=== PATIENT | male | born 1990 | race American Indian/Alaskan Native ===

== ENCOUNTER 2016-12-20 20:18 | Inpatient (IN) | payer OTHER ==
[2016-12-20] MEDS ORDERED: Sodium Chloride 0.9% 1,000 ML IV ONE (21:14)
[2016-12-20 21:37] LABS: BASO # 0.1 K/uL (0.0-0.2); BASO % 0.7 % (0.0-2.0); EOS # 0.1 K/uL (0.0-0.7); EOS % 0.5 % (0.0-4.0); LYMPH # 2.2 K/uL (1.0-4.3); LYMPH % 12.2 % (20.0-40.0); MEAN CORPUSCULAR HEMOGLOBIN 30.4 pg (27.0-31.0); MEAN PLATELET VOLUME 7.5 fL (7.2-11.7); MONO # 0.9 K/uL (0.0-0.8); MONO % 4.8 % (0.0-10.0); RED CELL DISTRIBUTION WIDTH 13.4 % (11.5-14.5)
[2016-12-20] MEDS ORDERED: Sodium Chloride 0.9% 1,000 ML ONE (21:37)
[2016-12-20] MEDS ORDERED: Morphine 4 MG/ML VIAL ONE (21:37)
[2016-12-20 21:41] LABS: MEAN CELL VOLUME 89.4 fL (80.0-94.0); RBC URINE 6 /hpf (0-3); URINE BACTERIA RARE (<OCC); URINE BILIRUBIN NEGATIVE (NEGATIVE); URINE COLOR Yellow (YELLOW); URINE GLUCOSE (UA) NORMAL (Normal); URINE KETONE 1+ mg/dL (NEGATIVE); URINE LEUKOCYTE ESTERASE NEG Leu/uL (Negative); URINE PROTEIN NEGATIVE (NEGATIVE); URINE UROBILINOGEN NORMAL mg/dL (0.2-1.0); WBC URINE 1 /hpf (0-5); WHITE BLOOD COUNT 17.8 K/uL (4.8-10.8)
[2016-12-20 21:42] LABS: URINE BLOOD 1+ (NEGATIVE)
[2016-12-20 21:49] LABS: CHLORIDE 94 mmol/L (98-107); SODIUM 133 mmol/L (132-148)
[2016-12-20 21:51] LABS: BILIRUBIN,TOTAL 2.2 mg/dL (0.2-1.3); GFR AFRICAN-AMERICAN > 60
[2016-12-20 21:52] LABS: ALB/GLOB RATIO 1.2 (1.0-2.1); ALKALINE PHOSPHATASE 65 U/L (38-126); ALT/SGPT 24 U/L (21-72); AST/SGOT 74 U/L (17-59); BLOOD UREA NITROGEN 14 mg/dL (9-20); CALCIUM 9.3 mg/dl (8.6-10.4); CARBON DIOXIDE 22 mmol/L (22-30); GLUCOSE,RANDOM 89 mg/dL (75-110)
[2016-12-20 21:53] LABS: POTASSIUM 5.6 mmol/L (3.6-5.2)
--- NOTE | 2016-12-20 22:50 | C.PDOC ---
History Of Present Illness 26 year old male with a history of pancreatitis, presents to the ED with complaints of epigastric pain radiating to the back with associated nausea and vomiting for 2 days. Patient states he had pancreatitis last month secondary to alcohol consumption and stopped drinking. He notes he did binge drink 2 days ago prior to onset of his current symptoms. Denies fever, diarrhea, GI bleed, dysuria, or any other complaints at this time. Time Seen by Provider: 12/20/16 21:03 Chief Complaint (Nursing): Abdominal Pain History Per: Patient History/Exam Limitations: no limitations Onset/Duration Of Symptoms: Days Current Symptoms Are (Timing): Still Present Severity: Mild Pain Scale Rating Of: 9 Location Of Pain/Discomfort: Epigastric Radiation Of Pain To:: Back Quality Of Discomfort: "Pain" Associated Symptoms: Nausea, Vomiting. denies: Fever, Diarrhea, Urinary Symptoms Exacerbating Factors: None Alleviating Factors: None Past Medical History Reviewed: Historical Data, Nursing Documentation, Vital Signs Vital Signs: Last Vital Signs Temp 99.5 F 12/21/16 00:56 Pulse 97 H 12/21/16 02:09 Resp 16 12/21/16 02:09 BP 143/82 12/21/16 02:09 Pulse Ox 98 12/21/16 05:07 - Medical History PMH: Pancreatitis (ONE MONTH AGO) Family History: States: No Known Family Hx - Social History Hx Alcohol Use: Yes Hx Substance Use: No - Immunization History Hx Tetanus Toxoid Vaccination: No Hx Influenza Vaccination: No Hx Pneumococcal Vaccination: No Review Of Systems Except As Marked, All Systems Reviewed And Found Negative. Constitutional: Negative for: Fever, Chills Gastrointestinal: Positive for: Nausea, Vomiting, Abdominal Pain (+Epigastric pain radiating back). Negative for: Diarrhea, Hematochezia, Hematemesis Genitourinary: Negative for: Dysuria Musculoskeletal: Negative for: Back Pain Physical Exam - Physical Exam Appears: Non-toxic, No Acute Distress Skin: Normal Color, Warm, Dry Head: Atraumatic, Normacephalic Eye(s): bilateral: Normal Inspection Oral Mucosa: Moist Chest: Symmetrical Cardiovascular: Rhythm Regular Respiratory: Normal Breath Sounds, No Accessory Muscle Use, No Rales, No Rhonchi , No Wheezing Gastrointestinal/Abdominal: Bowel Sounds (soft), Soft, Tenderness (+Mild- moderate epigastric tenderness), No Distention, No Guarding, No Rebound Back: No CVA Tenderness Extremity: Normal ROM, No Deformity Neurological/Psych: Oriented x3, Normal Speech, Normal Cognition, Normal Motor Gait: Steady ED Course And Treatment - Laboratory Results Result Diagrams: 12/20/16 21:34 12/20/16 21:34 O2 Sat by Pulse Oximetry: 98 (Room air) Pulse Ox Interpretation: Normal - Radiology CXR: Interpreted by Me, Viewed By Me CXR Interpretation: Yes: No Acute Disease - CT Scan/US CT ABD & Pelvis w/contrast Other Rad Studies (CT/US): Read By Radiologist, Radiology Report Reviewed CT/US Interpretation: FINDINGS: Lower thorax: The visualized portions of the lung bases are normal. ABDOMEN: Liver: There is diffuse mild enlargement of the liver. There is a diffuse decrease in hepatic parenchymal density, consistent with fatty infiltration. Gallbladder and bile ducts: The gallbladder is normal. No calcified stones. No ductal dilation. Pancreas: There is moderate peripancreatic fluid and fat stranding at the level of the pancreatic head and uncinate process. There is heterogeneous attenuation of this portion of the pancreas, although there is no definite pancreatic necrosis at this time. Spleen: Unremarkable. Adrenals: The adrenal glands are normal. Kidneys and ureters: There is felt to be a nonobstructing stone in the lower pole of the right kidney. There is no hydronephrosis on either side. Stomach and bowel: Unremarkable. No obstruction. Appendix: A normal appendix is identified. PELVIS: Bladder: The bladder is normal. Reproductive: Unremarkable as visualized. ABDOMEN and PELVIS: Intraperitoneal space: Unremarkable. No free air. No significant fluid collection. Bones/joints: No acute fracture. No dislocation. Soft tissues: There is a fat-containing umbilical hernia. Vasculature: Unremarkable. No abdominal aortic aneurysm. Lymph nodes: There are a few mildly prominent mesenteric lymph nodes. IMPRESSION: 1. There is moderate peripancreatic fluid and fat stranding at the level of the pancreatic head and uncinate process. There is heterogeneous attenuation of this portion of the pancreas, although there is no definite pancreatic necrosis at this time. This suggests moderate acute focal pancreatitis involving the pancreatic head and uncinate process. Please correlate with clinical and lab data. 2. Additional findings as described above. ED OBSERVATION Date of observation admission: 12/20/16 Time of observation admission: 21:00 - Observation admission statement Patient is being placed in observation because:: Abdominal pain - Goals of Observation Goals of observation are:: rule out acute abdomen and observing for improvement of symptoms. - Progress Note Progress Note: 12/20/16 22:00 Patient reports that the pain medications helped. Abdomen: soft, (+) mild epigastric tenderness. 12/20/16 23:09 Patient reports that the pain has returned and requesting pain medications. 12/21/16 05:10 On third re-exam the patient still has pain and nausea. Lipase is normal but CT exam shows signs of acute pancreatitis, with janett-pancreatic stranding and fluid. Case was discussed with Dr. Monroe reich who agrees to admit the patient to his service. Disposition - Disposition Disposition: HOSPITALIZED Disposition Time: 01:00 Condition: FAIR - Clinical Impression Clinical Impression: Abdominal pain, Acute pancreatitis - PA / SERVICE SECRETARY / Resident Statement MD/DO has reviewed & agrees with the documentation as recorded. - Scribe Statement The provider has reviewed the documentation as recorded by the Scribe Denver Donnelly. All medical record entries made by the Scribe were at my direction and personally dictated by me. I have reviewed the chart and agree that the record accurately reflects my personal performance of the history, physical exam, medical decision making, and the department course for this patient. I have also personally directed, reviewed, and agree with the discharge instructions and disposition.
[2016-12-20] MEDS ORDERED: Sodium Chloride 0.9% 500 ML IV ONE (23:04)
[2016-12-21] MEDS ORDERED: Sodium Chloride 0.9% 1,000 ML ONE (00:07)
[2016-12-21] MEDS ORDERED: Morphine 4 MG/ML VIAL ONE (00:07)
[2016-12-21] MEDS ORDERED: HYDROmorphone 1 mg/ml ISec IVP PRN (01:54)
[2016-12-21] MEDS ORDERED: Dextrose 5%/0.45% NS 1,000 ML IV SCH (02:00)
[2016-12-21] MEDS ORDERED: Dextrose 5%-0.225% NS 1,000 ML IV ONE (02:04)
[2016-12-21] MEDS ORDERED: HYDROmorphone 1 mg/ml ISec ONE (02:04)
[2016-12-21] MEDS ORDERED: HYDROmorphone 1 mg/ml ISec IVP STA ×2 (05:00→08:05)
[2016-12-21 05:30] LABS: AMYLASE 64 U/L (30-110)
--- NOTE | 2016-12-21 07:37 | CP.PCM.PN ---
<Ketan Adams H - Last Filed: 12/21/16 13:40> Subjective - Date & Time of Evaluation Date of Evaluation: 12/21/16 Time of Evaluation: 09:00 - Subjective Subjective: Dr. Amando Gonzalez service, Patient seen and examined in room. Patient reports having 2 days of nausea, vomiting, diffuse abdominal pain, and decreased appetite. He came to the ED was discharged and then returned. He reports a history of etoh abuse but has been sober for the past several months. He also says he has had pancreatitis before due to alcohol abuse. He says he was vomited twice both times were yellow bilious and non bloody. Objective - Vital Signs/Intake and Output Vital Signs (last 24 hours): Temp Pulse Resp BP Pulse Ox 99.5 F 97 H 16 158/82 H 98 12/21/16 00:56 12/21/16 02:09 12/21/16 02:09 12/21/16 05:30 12/21/16 05:12 - Medications Medications: Current Medications Enoxaparin Sodium (Lovenox) [address] [facility] Hydromorphone HCl (Dilaudid) 1 mg IVP Q8H PRN PRN Reason: Pain, severe (8-10) Last Admin: 12/21/16 02:10 Dose: 1 mg Dextrose/Sodium Chloride (Dextrose 5%/0.45% Ns 1000 Ml) 1,000 mls @ 60 mls/hr IV .[id number] Last Admin: 12/21/16 02:10 Dose: 60 mls/hr Influenza Virus Vaccine (Afluria) 45 mcg IM .ONCE ONE Stop: 12/23/16 14:01 Pantoprazole Sodium (Protonix Inj) [address] [facility] Pneumococcal Polyvalent Vaccine (Pneumovax 23 Vaccine) 0.5 ml IM .ONCE ONE Stop: 12/23/16 14:01 - Constitutional Appears: Non-toxic, No Acute Distress - Head Exam Head Exam: ATRAUMATIC, NORMAL INSPECTION, NORMOCEPHALIC - Eye Exam Eye Exam: PERRL. absent: Nystagmus, Scleral icterus Pupil Exam: NORMAL ACCOMODATION - Respiratory Exam Respiratory Exam: Clear to Ausculation Bilateral. absent: Rhonchi, Wheezes - Cardiovascular Exam Cardiovascular Exam: REGULAR RHYTHM, RRR, +S1, +S2. absent: Gallop, Rubs - GI/Abdominal Exam GI & Abdominal Exam: Guarding, Soft, Tenderness, Normal Bowel Sounds. absent: Organomegaly - Extremities Exam Extremities Exam: Normal Inspection. absent: Pedal Edema - Psychiatric Exam Psychiatric exam: Normal Affect, Normal Mood - Skin Skin Exam: Normal Color, Warm Assessment and Plan (1) Acute pancreatitis Assessment & Plan: CT scan of the abdomen/pelvis shows mild pancreatitis. Will keep the patient NPO for now and given IV fluids, follow up his am labs, hepatitis panel, and abdominal US Will try clear liquid diet tomorrow depending on patient's pain level. 4mg IV Morphine Q6H prn for pain. Lactated Ringers 150 cc/hr. Status: Acute (2) Alcohol abuse Status: Chronic (3) Prophylactic measure Assessment & Plan: Protonix 40mg Lovenox 40mg SC Status: Acute <Isaiah Gonzalez S - Last Filed: 12/22/16 19:47> Objective - Vital Signs/Intake and Output Vital Signs (last 24 hours): Temp Pulse Resp BP Pulse Ox 98.5 F 88 20 149/85 97 12/22/16 15:54 12/22/16 15:54 12/22/16 15:54 12/22/16 15:54 12/22/16 15:54 - Medications Medications: Current Medications Enoxaparin Sodium (Lovenox) [address] [facility] Last Admin: 12/22/16 10:01 Dose: 40 mg Lactated Ringer's (Lactated Ringer's) 1,000 mls @ 100 mls/hr IV .Q10H [facility] Last Admin: 12/22/16 14:20 Dose: 100 mls/hr Potassium Chloride (Potassium Chloride 20 Meq/100 Ml) 100 mls @ 50 mls/hr IVPB ONCE ONE Stop: 12/22/16 21:45 Influenza Virus Vaccine (Afluria) 45 mcg IM .ONCE ONE Stop: 12/23/16 14:01 Morphine Sulfate (Morphine) 4 mg IVP Q6H PRN PRN Reason: Pain, severe (8-10) Last Admin: 12/22/16 17:38 Dose: 4 mg Pantoprazole Sodium (Protonix Inj) [address] [facility] Last Admin: 12/22/16 10:02 Dose: 40 mg Pneumococcal Polyvalent Vaccine (Pneumovax 23 Vaccine) 0.5 ml IM .ONCE ONE Stop: 12/23/16 14:01 - Labs Labs: 12/22/16 07:04 12/22/16 07:04 Attending/Attestation - Attestation I have personally seen and examined this patient.: Yes I have fully participated in the care of the patient.: Yes I have reviewed all pertinent clinical information, including history, physical exam and plan: Yes Notes (Text): 12/21/16 19:47 case seen and discussed with staff and resident
[2016-12-21 09:08] LABS: BASO # 0.1 K/uL (0.0-0.2); BASO % 0.6 % (0.0-2.0); EOS # 0.1 K/uL (0.0-0.7); EOS % 0.6 % (0.0-4.0); HEMATOCRIT 41.1 % (35.0-51.0); LYMPH # 2.3 K/uL (1.0-4.3); LYMPH % 12.7 % (20.0-40.0); MEAN CELL VOLUME 90.5 fL (80.0-94.0); MEAN CORPUSCULAR HEMOGLOBIN 30.5 pg (27.0-31.0); MEAN CORPUSCULAR HGB CONC 33.7 g/dL (33.0-37.0); MEAN PLATELET VOLUME 8.4 fL (7.2-11.7); MONO # 0.9 K/uL (0.0-0.8); MONO % 5.1 % (0.0-10.0); RED CELL DISTRIBUTION WIDTH 13.2 % (11.5-14.5); WHITE BLOOD COUNT 18.4 K/uL (4.8-10.8)
[2016-12-21 09:19] LABS: CHLORIDE 98 mmol/L (98-107)
--- NOTE | 2016-12-21 09:19 | RAD ---
PROCEDURE: CHEST RADIOGRAPH, 1 VIEW HISTORY: abd pain COMPARISON: The L eft wrist FINDINGS: LUNGS: Clear. PLEURA: No pneumothorax or pleural fluid seen. CARDIOVASCULAR: Normal. OSSEOUS STRUCTURES: No significant abnormalities. VISUALIZED UPPER ABDOMEN: Normal. OTHER FINDINGS: None. IMPRESSION: No active disease.
[2016-12-21 09:20] LABS: SODIUM 132 mmol/L (132-148)
[2016-12-21 09:22] LABS: ALB/GLOB RATIO 1.3 (1.0-2.1); AST/SGOT 51 U/L (17-59); BILIRUBIN,TOTAL 1.8 mg/dL (0.2-1.3); BLOOD UREA NITROGEN 10 mg/dL (9-20); CARBON DIOXIDE 19 mmol/L (22-30); GFR AFRICAN-AMERICAN > 60; TOTAL PROTEIN 7.7 g/dL (6.3-8.3)
[2016-12-21 09:23] LABS: ALKALINE PHOSPHATASE 55 U/L (38-126); ALT/SGPT 14 U/L (21-72); GLUCOSE,RANDOM 97 mg/dL (75-110); MAGNESIUM 1.7 mg/dL (1.6-2.3); PHOSPHOROUS 3.8 mg/dL (2.5-4.5)
[2016-12-21] MEDS ORDERED: Lactated Ringer's 1,000 ML IV SCH ×2 (09:30→13:46)
--- NOTE | 2016-12-21 10:08 | CT ---
PROCEDURE: CT Abdomen and Pelvis dated 12/20/2016. HISTORY: Epigastric pain, vomiting ;, hx of pancreatitis COMPARISON: High post that may comparison made with prior CT scan 11/11/2016 . TECHNIQUE: Contiguous axial images of the abdomen and pelvis performed in standard fashion without oral or intravenous contrast material. Sagittal and coronal reformats generated. Radiation dose: Total exam DLP = 913.61 mGy-cm. FINDINGS: LOWER THORAX: Lung bases are clear. No infiltrate effusion or basilar pneumothorax. Heart size within range of normal. No significant pericardial effusion. Tiny hiatal hernia. LIVER: Liver is borderline/mildly enlarged measuring approximately 18.5 cm in CC dimension. Mild diffuse fatty hepatic infiltration. No obvious hepatic mass collection or calcification. Portal and splenic veins are opacified. GALLBLADDER AND BILE DUCTS: Gallbladder is physiologically distended. No evidence of intraluminal gallbladder calculi. PANCREAS: There is slight edematous appearance of the pancreatic head and uncinate process with surrounding peripancreatic fluid that extends into the right anterior para renal space. Overall however the inflammatory changes and fluid appears to have diminished slightly Findings are consistent with this patient's history of pancreatitis. SPLEEN: Spleen exhibits normal size and attenuation pattern ADRENALS: . No adrenal lesions. KIDNEYS AND URETERS: Kidneys exhibit symmetric nephrograms. No evidence of nephrolithiasis or hydronephrosis. BLADDER: Urinary bladder is incompletely distended which presumably accounts for thick-walled appearance. Muscular hypertrophy may contribute. Possibility of a cystitis not excluded. REPRODUCTIVE: Prostate gland unremarkable. APPENDIX: Normal-appearing appendix. BOWEL: Evaluation of the bowel is somewhat lack of oral contrast material. PERITONEUM: No free intraperitoneal LYMPH NODES: Unremarkable. No enlarged lymph nodes. VASCULATURE: Unremarkable. No aortic aneurysm. BONES: Osseous structures intact. OTHER FINDINGS: None. IMPRESSION: Findings consistent with mild pancreatitis slightly improved however from prior study. Borderline/mild hepatomegaly with mild fatty hepatic infiltration.
[2016-12-21] MEDS: Enoxaparin 40 mg Syringe SC SCH (10:33)
[2016-12-21 10:41] LABS: ALCOHOL SERUM < 10 mg/dl (0-10)
[2016-12-21] MEDS: Lactated Ringer's 1,000 ML IV SCH ×3 (15:24→22:29)
--- NOTE | 2016-12-21 15:28 | CP.PCM.CON ---
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 Patient notes onset of constant epigastric pain upon awakening Wednesday morning, pain scale 9/10. He notes radiation to bilateral flank and back described "gas stuck in his back". Associated nausea, two episodes of food vomitus, bloating, loss of appetite, and constipation with last bowel movement on wednesday. Denies fever, chills, sweats, hematemesis, hematochezia, melena, diarrhea, or weight loss. Endorses last alcoholic drink to be the day prior to previous admission for pancreatitis in November 2016. No prior EGD or colonoscopy. Family- denies pancreatic cancer, colon cancer Social- 3 cigarettes per day, denies illicit drug use - endorsed sobriety day prior to last admission 11/2016 (previous 1-2 bottles liquor/day)x9 years Surgery- none Review of Systems - Review of Systems Review of Systems: A 12-point review of systems negative except for as above Past Patient History - Past Medical History & Family History Past Medical History?: Yes - Past Social History Smoking Status: Never Smoked - CARDIAC Hx Cardiac Disorders: No - PULMONARY Hx Respiratory Disorders: No - NEUROLOGICAL Hx Neurological Disorder: No - HEENT Hx HEENT Problems: No - RENAL Hx Chronic Kidney Disease: No - ENDOCRINE/METABOLIC Hx Endocrine Disorders: No - HEMATOLOGICAL/ONCOLOGICAL Hx Blood Disorders: No - INTEGUMENTARY Hx Dermatological Problems: No - MUSCULOSKELETAL/RHEUMATOLOGICAL Hx Falls: No - GASTROINTESTINAL Hx Pancreatitis: Yes (ONE MONTH AGO) - GENITOURINARY/GYNECOLOGICAL Hx Genitourinary Disorders: No - PSYCHIATRIC Hx Substance Use: No - SURGICAL HISTORY Hx Surgeries: No - ANESTHESIA Hx Anesthesia: No Hx Anesthesia Reactions: No Hx Malignant Hyperthermia: No Meds Allergies/Adverse Reactions: Allergies Allergy/AdvReac Type Severity Reaction Status Date / Time shellfish derived Allergy Verified 12/20/16 20:36 - Medications Medications: Current Medications Enoxaparin Sodium (Lovenox) 40 mg SC DAILY [facility] Last Admin: 12/21/16 10:33 Dose: 40 mg Influenza Virus Vaccine (Afluria) 45 mcg IM .ONCE ONE Stop: 12/23/16 14:01 Morphine Sulfate (Morphine) 4 mg IVP Q6H PRN PRN Reason: Pain, severe (8-10) Pantoprazole Sodium (Protonix Inj) 40 mg IVP DAILY [facility] Last Admin: 12/21/16 10:34 Dose: 40 mg Pneumococcal Polyvalent Vaccine (Pneumovax 23 Vaccine) 0.5 ml IM .ONCE ONE Stop: 12/23/16 14:01 Physical Exam - Constitutional Appears: Non-toxic, No Acute Distress - Head Exam Head Exam: ATRAUMATIC, NORMOCEPHALIC - Eye Exam Eye Exam: EOMI, PERRL Pupil Exam: PERRL. absent: Miosis, Mydriatic - ENT Exam ENT Exam: Mucous Membranes Moist, Normal Oropharynx - Neck Exam Neck exam: Positive for: Full Rom, Normal Inspection - Respiratory Exam Respiratory Exam: Clear to Auscultation Bilateral. absent: Rales, Rhonchi, Wheezes - Cardiovascular Exam Cardiovascular Exam: RRR, +S1, +S2. absent: Gallop, Rubs - GI/Abdominal Exam GI & Abdominal Exam: Normal Bowel Sounds, Organomegaly, Soft, Tenderness. absent: Distended, Firm, Guarding, Rebound, Rigid Additional comments: hepatomegaly - Extremities Exam Extremities exam: Positive for: full ROM. Negative for: pedal edema - Neurological Exam Neurological exam: Alert - Psychiatric Exam Psychiatric exam: Normal Affect, Normal Mood - Skin Skin Exam: Dry, Intact, Normal Color, Warm Results - Vital Signs Recent Vital Signs: Last Vital Signs Temp 98.9 F 12/21/16 09:29 Pulse 85 12/21/16 09:29 Resp 20 12/21/16 09:29 BP 152/94 H 12/21/16 09:29 Pulse Ox 98 12/21/16 09:29 - Labs Result Diagrams: 12/21/16 09:01 12/21/16 09:01 Labs: Laboratory Results - last 24 hr 12/21/16 12/21/16 05:16 09:01 WBC 18.4 H RBC 4.54 Hgb 13.9 Hct 41.1 MCV 90.5 MCH 30.5 MCHC 33.7 RDW 13.2 Plt Count 277 MPV 8.4 Neut % (Auto) 81.0 H Lymph % (Auto) 12.7 L [place] % (Auto) 5.1 Eos % (Auto) 0.6 Baso % (Auto) 0.6 Neut # 14.9 H Lymph # 2.3 [place] # 0.9 H Eos # 0.1 Baso # 0.1 Differential Comment Sodium 132 Potassium 5.0 Chloride 98 Carbon Dioxide 19 L Anion Gap 20 BUN 10 Creatinine 0.6 L Est GFR ( Amer) > 60 Est GFR (Non-Af Amer) > 60 Random Glucose 97 Calcium 9.0 Phosphorus 3.8 Magnesium 1.7 Total Bilirubin 1.8 H AST 51 ALT 14 L D Alkaline Phosphatase 55 Total Protein 7.7 Albumin 4.3 Globulin 3.4 Albumin/Globulin Ratio 1.3 Amylase 64 Lipase 18 L Urine Opiates Screen Positive Urine Methadone Screen Negative Ur Barbiturates Screen Negative Ur Phencyclidine Scrn Negative Ur Amphetamines Screen Negative U Benzodiazepines Scrn Negative U Oth Cocaine Metabols Negative U Cannabinoids Screen Negative Alcohol, Quantitative < 10 Assessment & Plan - Assessment and Plan (Free Text) Assessment: 26 year old male with 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 CT A/P showing mild peripancreatic head and uncinate process edema, inflammation, and fluid slightly improved from prior CT 11/2016. Laboratory findings showed leukocytosis with elevated BUN from baseline in setting of acute pancreatitis. No prior EGD or colonoscopy. Plan: >continue aggressive IVFs, LR 200cc/hr for first 24 hours >BUN improving >follow up AM labs- WBC, BUN >NPO diet, advance as tolerated >titrate down IVFs as tolerated >elevated TB- pending Hepatitis panel and abdominal U/S >counselled on alcohol cessation >suspicion for alcoholic etiology of pancreatitis >ultrasound 11/2016 without gallstones >further recommendations based on clinical course <Mary MORALES,Patti - Last Filed: 12/21/16 19:52> Meds - Medications Medications: Current Medications Enoxaparin Sodium (Lovenox) 40 mg SC DAILY [facility] Last Admin: 12/21/16 10:33 Dose: 40 mg Lactated Ringer's (Lactated Ringer's) 1,000 mls @ 200 mls/hr IV .Q5H [facility] Last Admin: 12/21/16 15:24 Dose: 200 mls/hr Influenza Virus Vaccine (Afluria) 45 mcg IM .ONCE ONE Stop: 12/23/16 14:01 Morphine Sulfate (Morphine) 4 mg IVP Q6H PRN PRN Reason: Pain, severe (8-10) Pantoprazole Sodium (Protonix Inj) 40 mg IVP DAILY [facility] Last Admin: 12/21/16 10:34 Dose: 40 mg Pneumococcal Polyvalent Vaccine (Pneumovax 23 Vaccine) 0.5 ml IM .ONCE ONE Stop: 12/23/16 14:01 Results - Vital Signs Recent Vital Signs: Last Vital Signs Temp 99.1 F 12/21/16 16:00 Pulse 87 12/21/16 16:00 Resp 20 12/21/16 16:00 BP 155/90 H 12/21/16 16:00 Pulse Ox 98 12/21/16 16:00 - Labs Result Diagrams: 12/21/16 09:01 12/21/16 09:01 Labs: Laboratory Results - last 24 hr 12/21/16 12/21/16 05:16 09:01 WBC 18.4 H RBC 4.54 Hgb 13.9 Hct 41.1 MCV 90.5 MCH 30.5 MCHC 33.7 RDW 13.2 Plt Count 277 MPV 8.4 Neut % (Auto) 81.0 H Lymph % (Auto) 12.7 L [place] % (Auto) 5.1 Eos % (Auto) 0.6 Baso % (Auto) 0.6 Neut # 14.9 H Lymph # 2.3 [place] # 0.9 H Eos # 0.1 Baso # 0.1 Differential Comment Sodium 132 Potassium 5.0 Chloride 98 Carbon Dioxide 19 L Anion Gap 20 BUN 10 Creatinine 0.6 L Est GFR ( Amer) > 60 Est GFR (Non-Af Amer) > 60 Random Glucose 97 Calcium 9.0 Phosphorus 3.8 Magnesium 1.7 Total Bilirubin 1.8 H AST 51 ALT 14 L D Alkaline Phosphatase 55 Total Protein 7.7 Albumin 4.3 Globulin 3.4 Albumin/Globulin Ratio 1.3 Amylase 64 Lipase 18 L Urine Opiates Screen Positive Urine Methadone Screen Negative Ur Barbiturates Screen Negative Ur Phencyclidine Scrn Negative Ur Amphetamines Screen Negative U Benzodiazepines Scrn Negative U Oth Cocaine Metabols Negative U Cannabinoids Screen Negative Alcohol, Quantitative < 10 Attending/Attestation - Attestation I have personally seen and examined this patient.: Yes I have fully participated in the care of the patient.: Yes I have reviewed all pertinent clinical information: Yes Notes (Text): 12/21/16 19:50 Patient seen and examined at bedside with GI fellow this am. This is a 26 year old male with 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 CT A/P showing mild peripancreatic head and uncinate process edema, inflammation, and fluid slightly improved from prior CT 11/2016. Laboratory findings showed leukocytosis with elevated BUN from baseline in setting of acute pancreatitis. Continue aggressive fluid resuscitation and start clear liquid diet. Alcohol cessation. No gallstones on sonogram. Elevated LFT- send hepatitis profile
--- NOTE | 2016-12-21 17:18 | CP.PCM.CON ---
Past Patient History - Past Medical History & Family History Past Medical History?: Yes - Past Social History Smoking Status: Never Smoked - CARDIAC Hx Cardiac Disorders: No - PULMONARY Hx Respiratory Disorders: No - NEUROLOGICAL Hx Neurological Disorder: No - HEENT Hx HEENT Problems: No - RENAL Hx Chronic Kidney Disease: No - ENDOCRINE/METABOLIC Hx Endocrine Disorders: No - HEMATOLOGICAL/ONCOLOGICAL Hx Blood Disorders: No - INTEGUMENTARY Hx Dermatological Problems: No - MUSCULOSKELETAL/RHEUMATOLOGICAL Hx Falls: No - GASTROINTESTINAL Hx Pancreatitis: Yes (ONE MONTH AGO) - GENITOURINARY/GYNECOLOGICAL Hx Genitourinary Disorders: No - PSYCHIATRIC Hx Substance Use: No - SURGICAL HISTORY Hx Surgeries: No - ANESTHESIA Hx Anesthesia: No Hx Anesthesia Reactions: No Hx Malignant Hyperthermia: No Meds Allergies/Adverse Reactions: Allergies Allergy/AdvReac Type Severity Reaction Status Date / Time shellfish derived Allergy Verified 12/20/16 20:36 - Medications Medications: Current Medications Enoxaparin Sodium (Lovenox) 40 mg SC DAILY [facility] Last Admin: 12/21/16 10:33 Dose: 40 mg Lactated Ringer's (Lactated Ringer's) 1,000 mls @ 200 mls/hr IV .Q5H [facility] Last Admin: 12/21/16 15:24 Dose: 200 mls/hr Influenza Virus Vaccine (Afluria) 45 mcg IM .ONCE ONE Stop: 12/23/16 14:01 Morphine Sulfate (Morphine) 4 mg IVP Q6H PRN PRN Reason: Pain, severe (8-10) Pantoprazole Sodium (Protonix Inj) 40 mg IVP DAILY [facility] Last Admin: 12/21/16 10:34 Dose: 40 mg Pneumococcal Polyvalent Vaccine (Pneumovax 23 Vaccine) 0.5 ml IM .ONCE ONE Stop: 12/23/16 14:01 Physical Exam - Constitutional Appears: Well - Head Exam Head Exam: ATRAUMATIC, NORMAL INSPECTION, NORMOCEPHALIC - Eye Exam Eye Exam: EOMI, Normal appearance, PERRL Pupil Exam: NORMAL ACCOMODATION, PERRL - ENT Exam ENT Exam: Mucous Membranes Moist, Normal Exam - Neck Exam Neck exam: Positive for: Normal Inspection - Respiratory Exam Respiratory Exam: Decreased Breath Sounds - Cardiovascular Exam Cardiovascular Exam: REGULAR RHYTHM, +S1, +S2 - GI/Abdominal Exam GI & Abdominal Exam: Diminished Bowel Sounds, Soft - Rectal Exam Rectal Exam: Deferred Results - Vital Signs Recent Vital Signs: Last Vital Signs Temp 98.9 F 12/21/16 09:29 Pulse 85 12/21/16 09:29 Resp 20 12/21/16 09:29 BP 152/94 H 12/21/16 09:29 Pulse Ox 98 12/21/16 09:29 - Labs Result Diagrams: 12/21/16 09:01 12/21/16 09:01 Labs: Laboratory Results - last 24 hr 12/21/16 12/21/16 05:16 09:01 WBC 18.4 H RBC 4.54 Hgb 13.9 Hct 41.1 MCV 90.5 MCH 30.5 MCHC 33.7 RDW 13.2 Plt Count 277 MPV 8.4 Neut % (Auto) 81.0 H Lymph % (Auto) 12.7 L Barbour % (Auto) 5.1 Eos % (Auto) 0.6 Baso % (Auto) 0.6 Neut # 14.9 H Lymph # 2.3 Barbour # 0.9 H Eos # 0.1 Baso # 0.1 Differential Comment Sodium 132 Potassium 5.0 Chloride 98 Carbon Dioxide 19 L Anion Gap 20 BUN 10 Creatinine 0.6 L Est GFR ( Amer) > 60 Est GFR (Non-Af Amer) > 60 Random Glucose 97 Calcium 9.0 Phosphorus 3.8 Magnesium 1.7 Total Bilirubin 1.8 H AST 51 ALT 14 L D Alkaline Phosphatase 55 Total Protein 7.7 Albumin 4.3 Globulin 3.4 Albumin/Globulin Ratio 1.3 Amylase 64 Lipase 18 L Urine Opiates Screen Positive Urine Methadone Screen Negative Ur Barbiturates Screen Negative Ur Phencyclidine Scrn Negative Ur Amphetamines Screen Negative U Benzodiazepines Scrn Negative U Oth Cocaine Metabols Negative U Cannabinoids Screen Negative Alcohol, Quantitative < 10
[2016-12-21] MEDS: Morphine 4 MG/ML VIAL IVP PRN (20:10)
[2016-12-22] MEDS: Morphine 4 MG/ML VIAL IVP PRN ×3 (03:15→17:38)
[2016-12-22 07:16] LABS: BASO # 0.1 K/uL (0.0-0.2); BASO % 0.4 % (0.0-2.0); EOS # 0.3 K/uL (0.0-0.7); EOS % 2.3 % (0.0-4.0); HEMATOCRIT 36.6 % (35.0-51.0); LYMPH % 16.9 % (20.0-40.0); MEAN CELL VOLUME 90.7 fL (80.0-94.0); MEAN CORPUSCULAR HEMOGLOBIN 30.3 pg (27.0-31.0); MEAN CORPUSCULAR HGB CONC 33.5 g/dL (33.0-37.0); MEAN PLATELET VOLUME 8.1 fL (7.2-11.7); MONO # 0.6 K/uL (0.0-0.8); WHITE BLOOD COUNT 12.1 K/uL (4.8-10.8)
[2016-12-22 07:57] LABS: CHLORIDE 96 mmol/L (98-107)
[2016-12-22 07:58] LABS: POTASSIUM 3.4 mmol/L (3.6-5.2); SODIUM 135 mmol/L (132-148)
[2016-12-22 08:00] LABS: ALB/GLOB RATIO 1.3 (1.0-2.1); ALKALINE PHOSPHATASE 51 U/L (38-126); AST/SGOT 24 U/L (17-59); BILIRUBIN,TOTAL 0.9 mg/dL (0.2-1.3); BLOOD UREA NITROGEN 4 mg/dL (9-20); CARBON DIOXIDE 25 mmol/L (22-30); GFR AFRICAN-AMERICAN > 60; GLUCOSE,RANDOM 75 mg/dL (75-110); TOTAL PROTEIN 6.6 g/dL (6.3-8.3)
[2016-12-22 08:01] LABS: ALT/SGPT 19 U/L (21-72); CALCIUM 8.8 mg/dl (8.6-10.4); MAGNESIUM 1.7 mg/dL (1.6-2.3)
--- NOTE | 2016-12-22 09:16 | CP.PCM.PN ---
<AidanAngelica - Last Filed: 12/22/16 09:26> Subjective - Date & Time of Evaluation Date of Evaluation: 12/22/16 Time of Evaluation: 09:15 - Subjective Subjective: Gastroenterology Fellow/PGY4 Progress Note Patient notes unchanged abdominal pain, pain scale 8/10. Tolerated clear liquid diet. Two normal bowel movements overnight. A 12-point review of systems negative except for as above. Objective - Vital Signs/Intake and Output Vital Signs (last 24 hours): Temp Pulse Resp BP Pulse Ox 98.5 F 83 20 151/89 H 99 12/21/16 23:50 12/21/16 23:50 12/21/16 23:50 12/21/16 23:50 12/21/16 23:50 Intake and Output: 12/22/16 12/22/16 06:59 18:59 Intake Total 1400 Balance 1400 - Medications Medications: Current Medications Enoxaparin Sodium (Lovenox) 40 mg SC DAILY [facility] Last Admin: 12/21/16 10:33 Dose: 40 mg Lactated Ringer's (Lactated Ringer's) 1,000 mls @ 200 mls/hr IV .Q5H [facility] Last Admin: 12/21/16 22:29 Dose: 200 mls/hr Influenza Virus Vaccine (Afluria) 45 mcg IM .ONCE ONE Stop: 12/23/16 14:01 Morphine Sulfate (Morphine) 4 mg IVP Q6H PRN PRN Reason: Pain, severe (8-10) Last Admin: 12/22/16 03:15 Dose: 4 mg Pantoprazole Sodium (Protonix Inj) 40 mg IVP DAILY [facility] Last Admin: 12/21/16 10:34 Dose: 40 mg Pneumococcal Polyvalent Vaccine (Pneumovax 23 Vaccine) 0.5 ml IM .ONCE ONE Stop: 12/23/16 14:01 - Labs Labs: 12/22/16 07:04 12/22/16 07:04 - Constitutional Appears: Non-toxic, No Acute Distress - Head Exam Head Exam: ATRAUMATIC, NORMOCEPHALIC - Eye Exam Eye Exam: EOMI, PERRL Pupil Exam: PERRL. absent: Miosis, Mydriatic - ENT Exam ENT Exam: Mucous Membranes Moist, Normal Oropharynx - Neck Exam Neck Exam: Full ROM, Normal Inspection - Respiratory Exam Respiratory Exam: Clear to Ausculation Bilateral. absent: Rales, Rhonchi, Wheezes - Cardiovascular Exam Cardiovascular Exam: RRR, +S1, +S2. absent: Gallop, Rubs - GI/Abdominal Exam GI & Abdominal Exam: Soft, Tenderness, Normal Bowel Sounds. absent: Distended, Firm, Guarding, Rigid, Organomegaly, Rebound Additional comments: epigastric/LUQ tenderness - Extremities Exam Extremities Exam: Full ROM. 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 CT A/P showing mild peripancreatic head and uncinate process edema, inflammation, and fluid slightly improved from prior CT 11/2016. Laboratory findings showed leukocytosis with elevated BUN from baseline in setting of acute pancreatitis. No prior EGD or colonoscopy. Plan: >suspicion for alcoholic etiology of pancreatitis >continue aggressive IVFs >on clear liquids, advance as tolerated >titrate IVFs and diet tolerated >laboratory findings improved-WBC, BUN >subjective pain unchanged >NPO through yesterday evening for Ultrasound >Hepatitis panel negative >pending abdominal U/S >further recommendations based on clinical course <Kurt Lincoln - Last Filed: 12/22/16 09:45> Objective - Vital Signs/Intake and Output Vital Signs (last 24 hours): Temp Pulse Resp BP Pulse Ox 98.5 F 83 20 151/89 H 99 12/21/16 23:50 12/21/16 23:50 12/21/16 23:50 12/21/16 23:50 12/21/16 23:50 Intake and Output: 12/22/16 12/22/16 06:59 18:59 Intake Total 1400 Balance 1400 - Medications Medications: Current Medications Enoxaparin Sodium (Lovenox) 40 mg SC DAILY [facility] Last Admin: 12/21/16 10:33 Dose: 40 mg Lactated Ringer's (Lactated Ringer's) 1,000 mls @ 200 mls/hr IV .Q5H [facility] Last Admin: 12/21/16 22:29 Dose: 200 mls/hr Influenza Virus Vaccine (Afluria) 45 mcg IM .ONCE ONE Stop: 12/23/16 14:01 Morphine Sulfate (Morphine) 4 mg IVP Q6H PRN PRN Reason: Pain, severe (8-10) Last Admin: 12/22/16 03:15 Dose: 4 mg Pantoprazole Sodium (Protonix Inj) 40 mg IVP DAILY [facility] Last Admin: 12/21/16 10:34 Dose: 40 mg Pneumococcal Polyvalent Vaccine (Pneumovax 23 Vaccine) 0.5 ml IM .ONCE ONE Stop: 12/23/16 14:01 - Labs Labs: 12/22/16 07:04 12/22/16 07:04 Attending/Attestation - Attestation I have personally seen and examined this patient.: Yes I have fully participated in the care of the patient.: Yes I have reviewed all pertinent clinical information, including history, physical exam and plan: Yes Notes (Text): 12/22/16 09:41 I have seen and examined patient with GI fellow. He is resting in bed comfortably, though continues to endorse epigastric abdominal pain radiating to back, 8/10 intensity. He denies nausea, vomiting, fever/chills. History of ETOH related pancreatitis Abdominal pain - Continue with IVF hydration, PPI therapy - Pain control - Follow up abdominal US results - Clear liquid diet, advance slowly as tolerated - ETOH cessation counseling - Will continue to monitor patient clinical course
[2016-12-22] MEDS: Enoxaparin 40 mg Syringe SC SCH (10:01)
[2016-12-22] MEDS ORDERED: Potassium Chloride 20 mEq/15 ml LIQ UD PO STA (10:38)
--- NOTE | 2016-12-22 11:27 | CP.PCM.PN ---
<Alyssa Church H - Last Filed: 12/22/16 11:24> Subjective - Date & Time of Evaluation Date of Evaluation: 12/22/16 Time of Evaluation: 06:45 - Subjective Subjective: Dr. Amando Gonzalez service: Patient seen and examined in room. Patient reports abdominal pain that is improving but now radiating to his back. Patient has been drinking clear liquids without increased pain. Patient denies fever, chills, chest pain, SOB, nausea, vomiting, diarrhea, constipation. Patient excited to eat real food. May start soft diet for dinner. Objective - Vital Signs/Intake and Output Vital Signs (last 24 hours): Temp Pulse Resp BP Pulse Ox 97.2 F L 91 H 20 135/80 99 12/22/16 08:00 12/22/16 08:00 12/22/16 08:00 12/22/16 08:00 12/22/16 08:00 Intake and Output: 12/22/16 12/22/16 06:59 18:59 Intake Total 1400 Balance 1400 - Medications Medications: Current Medications Enoxaparin Sodium (Lovenox) 40 mg SC DAILY [facility] Last Admin: 12/22/16 10:01 Dose: 40 mg Lactated Ringer's (Lactated Ringer's) 1,000 mls @ 200 mls/hr IV .Q5H [facility] Last Admin: 12/21/16 22:29 Dose: 200 mls/hr Influenza Virus Vaccine (Afluria) 45 mcg IM .ONCE ONE Stop: 12/23/16 14:01 Morphine Sulfate (Morphine) 4 mg IVP Q6H PRN PRN Reason: Pain, severe (8-10) Last Admin: 12/22/16 10:02 Dose: 4 mg Pantoprazole Sodium (Protonix Inj) 40 mg IVP DAILY [facility] Last Admin: 12/22/16 10:02 Dose: 40 mg Pneumococcal Polyvalent Vaccine (Pneumovax 23 Vaccine) 0.5 ml IM .ONCE ONE Stop: 12/23/16 14:01 - Labs Labs: 12/22/16 07:04 12/22/16 07:04 - Constitutional Appears: Non-toxic, No Acute Distress - Head Exam Head Exam: NORMAL INSPECTION - Eye Exam Eye Exam: EOMI - ENT Exam ENT Exam: Mucous Membranes Moist - Respiratory Exam Respiratory Exam: Clear to Ausculation Bilateral, NORMAL BREATHING PATTERN. absent: Rales, Rhonchi, Wheezes - Cardiovascular Exam Cardiovascular Exam: REGULAR RHYTHM, +S1, +S2. absent: Gallop, Rubs, Murmur - GI/Abdominal Exam GI & Abdominal Exam: Soft, Normal Bowel Sounds. absent: Firm, Guarding, Tenderness - Extremities Exam Extremities Exam: Normal Capillary Refill. absent: Pedal Edema - Neurological Exam Neurological Exam: Alert, Oriented x3 - Psychiatric Exam Psychiatric exam: Normal Affect, Normal Mood - Skin Skin Exam: Normal Color, Warm Assessment and Plan - Assessment and Plan (Free Text) Assessment: (1) Acute pancreatitis Assessment & Plan: CT scan of the abdomen/pelvis shows mild pancreatitis. Clear liquid diet Hepatitis panel negative F/U Abdominal US 4mg IV Morphine Q6H prn for pain. Lactated Ringers 150 cc/hr. Status: Acute (2) Alcohol abuse Status: Chronic Quit a few months ago No risk of withdrawal (3) Prophylactic measure Assessment & Plan: Protonix 40mg Lovenox 40mg SC Status: Acute <Isaiah Gonzalez S - Last Filed: 12/22/16 19:47> Objective - Vital Signs/Intake and Output Vital Signs (last 24 hours): Temp Pulse Resp BP Pulse Ox 98.5 F 88 20 149/85 97 12/22/16 15:54 12/22/16 15:54 12/22/16 15:54 12/22/16 15:54 12/22/16 15:54 - Medications Medications: Current Medications Enoxaparin Sodium (Lovenox) 40 mg SC DAILY [facility] Last Admin: 12/22/16 10:01 Dose: 40 mg Lactated Ringer's (Lactated Ringer's) 1,000 mls @ 100 mls/hr IV .Q10H [facility] Last Admin: 12/22/16 14:20 Dose: 100 mls/hr Potassium Chloride (Potassium Chloride 20 Meq/100 Ml) 100 mls @ 50 mls/hr IVPB ONCE ONE Stop: 12/22/16 21:45 Influenza Virus Vaccine (Afluria) 45 mcg IM .ONCE ONE Stop: 12/23/16 14:01 Morphine Sulfate (Morphine) 4 mg IVP Q6H PRN PRN Reason: Pain, severe (8-10) Last Admin: 12/22/16 17:38 Dose: 4 mg Pantoprazole Sodium (Protonix Inj) 40 mg IVP DAILY [facility] Last Admin: 12/22/16 10:02 Dose: 40 mg Pneumococcal Polyvalent Vaccine (Pneumovax 23 Vaccine) 0.5 ml IM .ONCE ONE Stop: 12/23/16 14:01 - Labs Labs: 12/22/16 07:04 12/22/16 07:04 Attending/Attestation - Attestation I have personally seen and examined this patient.: Yes I have fully participated in the care of the patient.: Yes I have reviewed all pertinent clinical information, including history, physical exam and plan: Yes Notes (Text): 12/22/16 19:47 case seen and discussed with staff and resident
--- NOTE | 2016-12-22 12:01 | US ---
Abdominal ultrasound dated 12/21/2016. History: Abdominal pain. Sonographic evaluation of abdomen performed and compared with prior study 11/11/2016. Comparison also made with CT scan abdomen pelvis dated 12/21/19 17. Findings: The liver exhibits normal size measuring 15.4 cm CC dimension. Liver demonstrates smooth contour increased echotexture consistent with fatty infiltration however other infiltrative hepatocellular disease process not excluded. . No obvious hepatic mass or collection. Trace amount of free fluid adjacent to the right kidney. Gallbladder is physiologically distended. No evidence intraluminal gallbladder calculi or sonographic Llamas sign. Common bile duct measures 3 mm. Evaluation of pancreas is somewhat limited. Pancreatic mid body and tail appear grossly unremarkable. There may be some infiltration changes at of the pancreatic head and uncinate process region. . Please refer to CT scan of the abdomen and pelvis for further details regarding acute pancreatitis. Spleen is unremarkable. Small splenule is present. Kidneys exhibit symmetric size. No evidence of nephrolithiasis or hydronephrosis. Small amount of para renal fluid related to the aforementioned pancreatitis Impression: Evaluation of the pancreas limited on this study however maybe some infiltration changes in the pancreatic head and uncinate process region. Please refer to prior CT scan of the abdomen pelvis regarding changes of pancreatitis which are seen to much better advantage. . Small amount of fluid also noted in the rightpara renal space. Fatty infiltration.
[2016-12-22] MEDS: Lactated Ringer's 1,000 ML IV SCH (14:20)
[2016-12-22] MEDS ORDERED: Lactated Ringer's 1,000 ML IV SCH (15:07)
--- NOTE | 2016-12-22 16:41 | CP.PCM.PN ---
Subjective - Date & Time of Evaluation Date of Evaluation: 12/22/16 Time of Evaluation: 10:40 - Subjective Subjective: clinically same Objective - Vital Signs/Intake and Output Vital Signs (last 24 hours): Temp Pulse Resp BP Pulse Ox 98.5 F 88 20 149/85 97 12/22/16 15:54 12/22/16 15:54 12/22/16 15:54 12/22/16 15:54 12/22/16 15:54 Intake and Output: 12/22/16 12/22/16 06:59 18:59 Intake Total 1400 Balance 1400 - Medications Medications: Current Medications Enoxaparin Sodium (Lovenox) 40 mg SC DAILY [facility] Last Admin: 12/22/16 10:01 Dose: 40 mg Lactated Ringer's (Lactated Ringer's) 1,000 mls @ 100 mls/hr IV .Q10H [facility] Last Admin: 12/22/16 14:20 Dose: 100 mls/hr Influenza Virus Vaccine (Afluria) 45 mcg IM .ONCE ONE Stop: 12/23/16 14:01 Morphine Sulfate (Morphine) 4 mg IVP Q6H PRN PRN Reason: Pain, severe (8-10) Last Admin: 12/22/16 10:02 Dose: 4 mg Pantoprazole Sodium (Protonix Inj) 40 mg IVP DAILY [facility] Last Admin: 12/22/16 10:02 Dose: 40 mg Pneumococcal Polyvalent Vaccine (Pneumovax 23 Vaccine) 0.5 ml IM .ONCE ONE Stop: 12/23/16 14:01 - Labs Labs: 12/22/16 07:04 12/22/16 07:04 - Constitutional Appears: Well - Head Exam Head Exam: ATRAUMATIC, NORMAL INSPECTION, NORMOCEPHALIC - Eye Exam Eye Exam: EOMI, Normal appearance, PERRL Pupil Exam: NORMAL ACCOMODATION, PERRL - ENT Exam ENT Exam: Mucous Membranes Moist, Normal Exam - Respiratory Exam Respiratory Exam: Decreased Breath Sounds - Cardiovascular Exam Cardiovascular Exam: REGULAR RHYTHM, +S1, +S2 - GI/Abdominal Exam GI & Abdominal Exam: Soft, Diminished Bowel Sounds - Rectal Exam Rectal Exam: Deferred Assessment and Plan - Assessment and Plan (Free Text) Plan: kcl npo-clear liquids giconsult check maylase and lipse maribel as ordered
[2016-12-22] MEDS ORDERED: Potassium Chloride 20 mEq 100 ML IVPB ONE (19:46)
[2016-12-23] MEDS: Morphine 4 MG/ML VIAL IVP PRN ×2 (01:30→09:27)
[2016-12-23 08:13] LABS: BASO # 0.1 K/uL (0.0-0.2); BASO % 0.6 % (0.0-2.0); EOS # 0.4 K/uL (0.0-0.7); EOS % 4.4 % (0.0-4.0); HEMATOCRIT 35.8 % (35.0-51.0); LYMPH # 2.8 K/uL (1.0-4.3); MEAN CELL VOLUME 90.6 fL (80.0-94.0); MEAN CORPUSCULAR HEMOGLOBIN 30.7 pg (27.0-31.0); MEAN CORPUSCULAR HGB CONC 33.9 g/dL (33.0-37.0); MEAN PLATELET VOLUME 8.2 fL (7.2-11.7); MONO # 0.5 K/uL (0.0-0.8); MONO % 5.3 % (0.0-10.0); RED CELL DISTRIBUTION WIDTH 12.9 % (11.5-14.5); WHITE BLOOD COUNT 10.2 K/uL (4.8-10.8)
[2016-12-23 08:21] LABS: CHLORIDE 100 mmol/L (98-107); POTASSIUM 3.6 mmol/L (3.6-5.2); SODIUM 136 mmol/L (132-148)
[2016-12-23 08:23] LABS: ALB/GLOB RATIO 1.1 (1.0-2.1); AST/SGOT 16 U/L (17-59); BILIRUBIN,TOTAL 0.7 mg/dL (0.2-1.3); BLOOD UREA NITROGEN 3 mg/dL (9-20); CARBON DIOXIDE 26 mmol/L (22-30); GFR AFRICAN-AMERICAN > 60; TOTAL PROTEIN 6.9 g/dL (6.3-8.3)
[2016-12-23 08:24] LABS: ALKALINE PHOSPHATASE 46 U/L (38-126); ALT/SGPT 26 U/L (21-72); CALCIUM 9.2 mg/dl (8.6-10.4); GLUCOSE,RANDOM 84 mg/dL (75-110)
[2016-12-23 08:31] VITALS: RESP 20
[2016-12-23] MEDS: Enoxaparin 40 mg Syringe SC SCH (09:28)
--- NOTE | 2016-12-23 10:42 | CP.PCM.PN ---
<Angelica Bermudez - Last Filed: 12/23/16 10:48> Subjective - Date & Time of Evaluation Date of Evaluation: 12/23/16 Time of Evaluation: 10:37 - Subjective Subjective: Gastroenterology Fellow/PGY4 Progress Note Patient notes improving abdominal pain, pain scale 4/10. Tolerated clear liquid diet. One normal bowel movements overnight. A 12-point review of systems negative except for as above. Objective - Vital Signs/Intake and Output Vital Signs (last 24 hours): Temp Pulse Resp BP Pulse Ox 97.8 F 87 20 148/95 H 98 12/23/16 08:30 12/23/16 08:30 12/23/16 08:30 12/23/16 08:30 12/23/16 08:30 - Medications Medications: Current Medications Enoxaparin Sodium (Lovenox) 40 mg SC DAILY [facility] Last Admin: 12/23/16 09:28 Dose: 40 mg Influenza Virus Vaccine (Afluria) 45 mcg IM .ONCE ONE Stop: 12/23/16 14:01 Morphine Sulfate (Morphine) 4 mg IVP Q6H PRN PRN Reason: Pain, severe (8-10) Last Admin: 12/23/16 09:27 Dose: 4 mg Pantoprazole Sodium (Protonix Inj) 40 mg IVP DAILY [facility] Last Admin: 12/23/16 09:28 Dose: 40 mg Pneumococcal Polyvalent Vaccine (Pneumovax 23 Vaccine) 0.5 ml IM .ONCE ONE Stop: 12/23/16 14:01 - Labs Labs: 12/23/16 08:09 12/23/16 08:09 - Constitutional Appears: Non-toxic, No Acute Distress - Head Exam Head Exam: ATRAUMATIC, NORMOCEPHALIC - Eye Exam Eye Exam: EOMI, PERRL Pupil Exam: PERRL. absent: Miosis, Mydriatic - ENT Exam ENT Exam: Mucous Membranes Moist, Normal Oropharynx - Neck Exam Neck Exam: Full ROM, Normal Inspection - Respiratory Exam Respiratory Exam: Clear to Ausculation Bilateral. absent: Rales, Rhonchi, Wheezes - Cardiovascular Exam Cardiovascular Exam: RRR, +S1, +S2. absent: Gallop, Rubs - GI/Abdominal Exam GI & Abdominal Exam: Soft, Tenderness, Normal Bowel Sounds. absent: Distended, Firm, Guarding, Rigid, Organomegaly, Rebound Additional comments: epigastric tenderness to palpation - Extremities Exam Extremities Exam: Full ROM. 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 CT A/P showing mild peripancreatic head and uncinate process edema, inflammation, and fluid slightly improved from prior CT 11/2016. Laboratory findings show improved leukocytosis with elevated BUN from baseline. No prior EGD or colonoscopy. Plan: >advance diet as tolerated >titrate IVFs as diet tolerated >Hepatitis panel negative >abdominal U/S without cholelithiasis >counselled on alcohol cessation >thank you for opportunity to participate in the care of this patient <Kiesha Moore - Last Filed: 12/23/16 14:11> Objective - Vital Signs/Intake and Output Vital Signs (last 24 hours): Temp Pulse Resp BP Pulse Ox 98.6 F 86 20 154/93 H 100 12/23/16 13:53 12/23/16 13:53 12/23/16 13:53 12/23/16 13:53 12/23/16 13:53 - Labs Labs: 12/23/16 08:09 12/23/16 08:09 Attending/Attestation - Attestation I have personally seen and examined this patient.: Yes I have fully participated in the care of the patient.: Yes I have reviewed all pertinent clinical information, including history, physical exam and plan: Yes Notes (Text): Patient seen and examined with GI fellow. Agree with her note as documented above with the following additions/exceptions. This is a 26 year old male with h/o ETOH pancreatitis who is admitted with abdominal pain and radiographic pancreatitis. His abdominal sonogram was negative. LFTs improved. His pain is much better this morning and he is tolerating liquid diet. Would advance diet as tolerated/low fat diet. Antiemetic as needed. Advised ETOH cessation. Please call with any questions/concerns. 12/23/16 14:10
--- NOTE | 2016-12-23 11:37 | CP.PCM.PN ---
Subjective - Date & Time of Evaluation Date of Evaluation: 12/23/16 Time of Evaluation: 07:40 - Subjective Subjective: Dr. Amando Gonzalez service: Patient seen and examined in room. Patient tolerated full liquid diet well. Patient had mild side discomfort with heart healthy diet. Patient denies fever, chills, chest pain, SOB, nausea, vomiting, diarrhea, constipation. Objective - Vital Signs/Intake and Output Vital Signs (last 24 hours): Temp Pulse Resp BP Pulse Ox 97.8 F 87 20 148/95 H 98 12/23/16 08:30 12/23/16 08:30 12/23/16 08:30 12/23/16 08:30 12/23/16 08:30 - Medications Medications: Current Medications Enoxaparin Sodium (Lovenox) 40 mg SC DAILY [facility] Last Admin: 12/23/16 09:28 Dose: 40 mg Influenza Virus Vaccine (Afluria) 45 mcg IM .ONCE ONE Stop: 12/23/16 14:01 Morphine Sulfate (Morphine) 4 mg IVP Q6H PRN PRN Reason: Pain, severe (8-10) Last Admin: 12/23/16 09:27 Dose: 4 mg Pantoprazole Sodium (Protonix Inj) 40 mg IVP DAILY [facility] Last Admin: 12/23/16 09:28 Dose: 40 mg Pneumococcal Polyvalent Vaccine (Pneumovax 23 Vaccine) 0.5 ml IM .ONCE ONE Stop: 12/23/16 14:01 - Labs Labs: 12/23/16 08:09 12/23/16 08:09 - Constitutional Appears: Non-toxic, No Acute Distress - Head Exam Head Exam: NORMAL INSPECTION - Eye Exam Eye Exam: EOMI - ENT Exam ENT Exam: Mucous Membranes Moist - Respiratory Exam Respiratory Exam: Clear to Ausculation Bilateral, NORMAL BREATHING PATTERN. absent: Rales, Rhonchi, Wheezes - Cardiovascular Exam Cardiovascular Exam: REGULAR RHYTHM, +S1, +S2. absent: Gallop, Rubs, Murmur - GI/Abdominal Exam GI & Abdominal Exam: Soft, Normal Bowel Sounds. absent: Firm, Guarding, Tenderness - Extremities Exam Extremities Exam: Normal Capillary Refill. absent: Pedal Edema - Neurological Exam Neurological Exam: Alert, Oriented x3 - Psychiatric Exam Psychiatric exam: Normal Affect, Normal Mood - Skin Skin Exam: Normal Color, Warm Assessment and Plan - Assessment and Plan (Free Text) Assessment: (1) Acute pancreatitis Assessment & Plan: CT scan of the abdomen/pelvis shows mild pancreatitis. Clear liquid diet Hepatitis panel negative Abdominal US negative for cholelithiasis 4mg IV Morphine Q6H prn for pain. Stopped Lactated Ringers 150 cc/hr. Eating heart healthy diet If no pain with lunch, D/C in afternoon Status: Acute (2) Alcohol abuse Status: Chronic Quit a few months ago No risk of withdrawal (3) Prophylactic measure Assessment & Plan: Protonix 40mg Lovenox 40mg SC Status: Acute
[2016-12-23 13:54] VITALS: BP 154/93; PULSE 86; TEMP 98.6; O2SAT 100
[2016-12-23] MEDS ORDERED: Influenza Virus Vaccine 45 mcg/0.5 ml Syr IM ONE (14:00)
[2016-12-23] MEDS ORDERED: Pneumococcal 23-Valent Vaccine IM ONE (14:00)
== END 2016-12-23 13:54 | disposition home or self-care (01) | DRG 440 ==
LOC: C.ER 20:18 → C.9OBSV 21:00 → OBSVTOIN 12-21 01:57 → C.9E 12-21 02:14 → C.5T 12-21 02:33
PROVIDERS: ADMIT Internal Medicine Nephrology; ATTEND Internal Medicine Nephrology
DX: K85.20 Alcohol induced acute pancreatitis without necrosis or infection (principal); F10.21 Alcohol dependence, in remission; K86.0 Alcohol-induced chronic pancreatitis; K59.00 Constipation, unspecified; F17.210 Nicotine dependence, cigarettes, uncomplicated; Z91.013 Allergy to seafood

== ENCOUNTER 2018-01-01 13:17 | Inpatient (IN) | payer OTHER ==
[2018-01-01 13:30] VITALS: BMI 32.3
[2018-01-01] MEDS ORDERED: Sodium Chloride 0.9% 1,000 ML IV ONE (13:40)
[2018-01-01] MEDS ORDERED: Sodium Chloride 0.9% 1,000 ML ONE (13:56)
[2018-01-01 14:03] LABS: SQUAMOUS EPITHIAL < 1 /hpf (0-5); URINE BILIRUBIN NEGATIVE (NEGATIVE); URINE BLOOD NEGATIVE (NEGATIVE); URINE CLARITY Clear (Clear); URINE COLOR Yellow (YELLOW); URINE GLUCOSE (UA) NORMAL (Normal); URINE LEUKOCYTE ESTERASE NEG Leu/uL (Negative); URINE PROTEIN NEGATIVE (NEGATIVE); URINE UROBILINOGEN NORMAL mg/dL (0.2-1.0)
[2018-01-01 14:11] LABS: BASO # 0.1 K/uL (0.0-0.2); BASO % 0.5 % (0.0-2.0); EOS # 0.1 K/uL (0.0-0.7); EOS % 0.4 % (0.0-4.0); HEMOGLOBIN 13.9 g/dL (12.0-18.0); LYMPH # 1.6 K/uL (1.0-4.3); LYMPH % 9.3 % (20.0-40.0); MEAN CELL VOLUME 90.3 fL (80.0-94.0); MEAN CORPUSCULAR HEMOGLOBIN 31.5 pg (27.0-31.0); MEAN CORPUSCULAR HGB CONC 34.9 g/dL (33.0-37.0); MEAN PLATELET VOLUME 8.2 fL (7.2-11.7); MONO # 0.8 K/uL (0.0-0.8); MONO % 4.6 % (0.0-10.0); NEUT % 85.2 % (50.0-75.0); PLATELET COUNT 303 K/uL (130-400); RBC 4.42 Mil/uL (4.40-5.90); RED CELL DISTRIBUTION WIDTH 13.1 % (11.5-14.5)
[2018-01-01 14:13] LABS: WHITE BLOOD COUNT 17.6 K/uL (4.8-10.8)
[2018-01-01 14:25] LABS: ALB/GLOB RATIO 1.3 (1.0-2.1); ALBUMIN 4.7 g/dL (3.5-5.0); ALT/SGPT 18 U/L (21-72); AST/SGOT 26 U/L (17-59); BLOOD UREA NITROGEN 13 mg/dL (9-20); CALCIUM 9.5 mg/dl (8.6-10.4); GFR AFRICAN-AMERICAN > 60; GFR NON-AFRICAN AMERICAN > 60; LIPASE 576 U/L (23-300)
--- NOTE | 2018-01-01 14:44 | C.PDOC ---
History Of Present Illness Patient is a 27 y/o male, with a Hx of pancreatitis, who presents to the ED with a complaint of abdominal pain for the last 2 days. Patient reports pain started yesterday associated with nausea and vomiting; denies diarrhea, fever, chills, chest pain, or history of abdominal surgery. Admits pain is similar to previous pancreatitis flare ups. Patient reports last alcoholic drink was 1 week ago. No other physical complaints at this time. Time Seen by Provider: 01/01/18 13:27 Chief Complaint (Nursing): Abdominal Pain History Per: Patient History/Exam Limitations: no limitations Onset/Duration Of Symptoms: Days (yesterday) Current Symptoms Are (Timing): Still Present Associated Symptoms: Nausea, Vomiting. denies: Fever, Chills, Diarrhea Past Medical History Reviewed: Historical Data, Nursing Documentation, Vital Signs Vital Signs: Last Vital Signs Temp 98.8 F 01/01/18 15:04 Pulse 77 01/01/18 15:04 Resp 18 01/01/18 15:04 BP 125/82 01/01/18 15:04 Pulse Ox 100 01/01/18 15:04 - Medical History PMH: Asthma, Depression, Pancreatitis Denies: Chronic Kidney Disease Surgical History: No Surg Hx Family History: States: No Known Family Hx - Social History Hx Tobacco Use: No Hx Alcohol Use: Yes Hx Substance Use: No - Immunization History Hx Tetanus Toxoid Vaccination: No Hx Influenza Vaccination: Yes Hx Pneumococcal Vaccination: No Review Of Systems Constitutional: Negative for: Fever, Chills Cardiovascular: Negative for: Chest Pain Gastrointestinal: Positive for: Nausea, Vomiting, Abdominal Pain. Negative for : Diarrhea Physical Exam - Physical Exam Appears: Well, Non-toxic, No Acute Distress Skin: Normal Color, Warm, Dry Head: Atraumatic, Normacephalic Oral Mucosa: Moist Chest: Symmetrical Cardiovascular: Rhythm Regular Respiratory: Normal Breath Sounds, No Rales, No Rhonchi, No Wheezing Gastrointestinal/Abdominal: Bowel Sounds (positive), Tenderness (LUQ and epigastric), No Guarding, No Rebound Neurological/Psych: Oriented x3, Normal Speech, Normal Cognition ED Course And Treatment - Laboratory Results Result Diagrams: 01/01/18 14:08 01/01/18 14:08 O2 Sat by Pulse Oximetry: 100 Progress Note: Blood work ordered. Pepcid, toradol, zofran, and IV fluids administered. Medical Decision Making Medical Decision Making: On assessment, patient has abdominal pain. Dr. Amando Gonzalez accepts admission of patient. Disposition Discussed With : Isaiah Gonzalez Doctor Will See Patient In The: Hospital Counseled Patient/Family Regarding: Studies Performed, Diagnosis - Disposition Disposition: HOSPITALIZED Disposition Time: 15:01 Condition: FAIR - Clinical Impression Clinical Impression: Acute pancreatitis - Scribe Statement The provider has reviewed the documentation as recorded by the Scribe Aurelia Wright All medical record entries made by the Scribe were at my direction and personally dictated by me. I have reviewed the chart and agree that the record accurately reflects my personal performance of the history, physical exam, medical decision making, and the department course for this patient. I have also personally directed, reviewed, and agree with the discharge instructions and disposition.
[2018-01-01 14:53] LABS: ANISOCYTOSIS SLIGHT; LYMPHOCYTE 6 % (20-40); MONOCYTE 3 % (0-10); NEUTROPHIL 91 % (50-75); PLATELET ESTIMATE NORMAL (NORMAL); TOTAL CELLS COUNTED 100
[2018-01-01] MEDS ORDERED: HYDROmorphone 1 mg/ml ISec IVP PRN (17:14)
[2018-01-01] MEDS ORDERED: Sodium Chloride 0.9% 1,000 ML IV SCH (19:00)
[2018-01-01 22:18] VITALS: RESP 20
--- NOTE | 2018-01-01 23:18 | CP.PCM.HP ---
Past Patient History - Past Medical History & Family History Past Medical History?: Yes - Past Social History Smoking Status: Never Smoked - CARDIAC Hx Cardiac Disorders: No - PULMONARY Hx Asthma: Yes - NEUROLOGICAL Hx Neurological Disorder: No - HEENT Hx HEENT Problems: No - RENAL Hx Chronic Kidney Disease: No - ENDOCRINE/METABOLIC Hx Endocrine Disorders: No - HEMATOLOGICAL/ONCOLOGICAL Hx Blood Disorders: No - INTEGUMENTARY Hx Dermatological Problems: No - MUSCULOSKELETAL/RHEUMATOLOGICAL Hx Musculoskeletal Disorders: No Hx Falls: No - GASTROINTESTINAL Hx Gastrointestinal Disorders: Yes Hx Pancreatitis: Yes - GENITOURINARY/GYNECOLOGICAL Hx Genitourinary Disorders: No - PSYCHIATRIC Hx Psychophysiologic Disorder: No Hx Substance Use: No - SURGICAL HISTORY Hx Surgeries: No - ANESTHESIA Hx Anesthesia: No Hx Anesthesia Reactions: No Hx Malignant Hyperthermia: No Has any member of the family had a problem w/ anesthesia?: No Meds Allergies/Adverse Reactions: Allergies Allergy/AdvReac Type Severity Reaction Status Date / Time shellfish derived Allergy Verified 01/01/18 13:29 Results - Vital Signs Recent Vital Signs: Last Vital Signs Temp 99.4 F 01/01/18 22:00 Pulse 72 01/01/18 22:00 Resp 20 01/01/18 22:00 BP 139/77 01/01/18 22:00 Pulse Ox 100 01/01/18 22:00 - Labs Result Diagrams: 01/01/18 14:08 01/01/18 14:08 Labs: Laboratory Results - last 24 hr 01/01/18 01/01/18 01/01/18 13:51 14:08 14:08 WBC 17.6 H D RBC 4.42 Hgb 13.9 Hct 39.9 MCV 90.3 MCH 31.5 H MCHC 34.9 RDW 13.1 Plt Count 303 MPV 8.2 Neut % (Auto) 85.2 H Lymph % (Auto) 9.3 L [place] % (Auto) 4.6 Eos % (Auto) 0.4 Baso % (Auto) 0.5 Neut # (Auto) 15.0 H Lymph # (Auto) 1.6 [place] # (Auto) 0.8 Eos # (Auto) 0.1 Baso # (Auto) 0.1 Neutrophils % (Manual) 91 H Lymphocytes % (Manual) 6 L Monocytes % (Manual) 3 Platelet Estimate Normal Anisocytosis (manual) Slight Sodium 140 Potassium 4.2 Chloride 99 Carbon Dioxide 25 Anion Gap 20 BUN 13 Creatinine 0.8 Est GFR ( Amer) > 60 Est GFR (Non-Af Amer) > 60 Random Glucose 113 H Calcium 9.5 Total Bilirubin 0.7 AST 26 ALT 18 L D Alkaline Phosphatase 78 Total Protein 8.3 Albumin 4.7 Globulin 3.7 Albumin/Globulin Ratio 1.3 Lipase 576 H Urine Color Yellow Urine Clarity Clear Urine pH 6.0 Ur Specific [place] 1.019 Urine Protein Negative Urine Glucose (UA) Normal Urine Ketones Negative Urine Blood Negative Urine Nitrate Negative Urine Bilirubin Negative Urine Urobilinogen Normal Ur Leukocyte Esterase Neg Urine WBC (Auto) 1 Urine RBC (Auto) 1 Ur Squamous Epith Cells < 1
[2018-01-02] MEDS ORDERED: Iohexol 240 (50 ml) PO ONE (07:45)
[2018-01-02] MEDS: Sodium Chloride 0.9% 1,000 ML IV SCH ×3 (08:00→17:30)
[2018-01-02] MEDS ORDERED: Iohexol 300 100 ML IJ ONE (08:15)
[2018-01-02] MEDS: Enoxaparin 40 mg Syringe SC SCH (09:39)
--- NOTE | 2018-01-02 11:16 | CP.PCM.CON ---
<Lissa Gonzalez - Last Filed: 01/02/18 11:50> History of Present Illness - History of Present Illness History of Present Illness: PGY4 Initial GI Consultation Connor Degroot is a 26 year old male with history of Alcoholic Pancreatitis who presented with abdominal pain. Patient notes onset of constant epigastric pain upon awakening, He notes that his pain was sudden and his pain is 9/10. He notes radiation to back. Associated nausea, two episodes of food vomitus, bloating, loss of appetite. Denies fever, chills, sweats, hematemesis, hematochezia, melena, diarrhea, or weight loss. Endorses last alcoholic drink to be weeks to previous admission for pancreatitis. He has had similiar admissions in 11/2016 and 12/2106. No prior EGD or colonoscopy. His abd pain has resolved in the AM and pt was hungry. Family- denies pancreatic cancer, colon cancer Social- 3 cigarettes per day, denies illicit drug use - endorsed sobriety day prior to last admission 11/2016 (previous 1-2 bottles liquor/day)x9 years Surgery- none ROS: 12 point ROS conducted, neg other than above Past Patient History - Past Medical History & Family History Past Medical History?: Yes - Past Social History Smoking Status: Never Smoked - CARDIAC Hx Cardiac Disorders: No - PULMONARY Hx Asthma: Yes - NEUROLOGICAL Hx Neurological Disorder: No - HEENT Hx HEENT Problems: No - RENAL Hx Chronic Kidney Disease: No - ENDOCRINE/METABOLIC Hx Endocrine Disorders: No - HEMATOLOGICAL/ONCOLOGICAL Hx Blood Disorders: No - INTEGUMENTARY Hx Dermatological Problems: No - MUSCULOSKELETAL/RHEUMATOLOGICAL Hx Musculoskeletal Disorders: No Hx Falls: No - GASTROINTESTINAL Hx Gastrointestinal Disorders: Yes Hx Pancreatitis: Yes - GENITOURINARY/GYNECOLOGICAL Hx Genitourinary Disorders: No - PSYCHIATRIC Hx Psychophysiologic Disorder: No Hx Substance Use: No - SURGICAL HISTORY Hx Surgeries: No - ANESTHESIA Hx Anesthesia: No Hx Anesthesia Reactions: No Hx Malignant Hyperthermia: No Has any member of the family had a problem w/ anesthesia?: No Meds Allergies/Adverse Reactions: Allergies Allergy/AdvReac Type Severity Reaction Status Date / Time shellfish derived Allergy Verified 01/01/18 13:29 - Medications Medications: Current Medications Enoxaparin Sodium (Lovenox) 40 mg SC DAILY [facility] Last Admin: 01/02/18 09:39 Dose: 40 mg Hydromorphone HCl (Dilaudid) 1 mg IVP Q8H PRN PRN Reason: Pain Last Admin: 01/02/18 09:34 Dose: 1 mg Sodium Chloride (Sodium Chloride 0.9%) 1,000 mls @ 200 mls/hr IV .Q5H [facility] Last Admin: 01/02/18 08:00 Dose: 200 mls/hr Pantoprazole Sodium (Protonix Inj) 40 mg IVP DAILY [facility] Last Admin: 01/02/18 09:35 Dose: 40 mg Physical Exam - Constitutional Appears: No Acute Distress - Head Exam Head Exam: ATRAUMATIC, NORMOCEPHALIC - Eye Exam Eye Exam: Normal appearance - ENT Exam ENT Exam: Mucous Membranes Moist, Normal Exam - Neck Exam Neck exam: Positive for: Normal Inspection - Respiratory Exam Respiratory Exam: Clear to Auscultation Bilateral. absent: Rales, Rhonchi, Wheezes, Respiratory Distress - Cardiovascular Exam Cardiovascular Exam: REGULAR RHYTHM, +S1, +S2 - GI/Abdominal Exam GI & Abdominal Exam: Normal Bowel Sounds, Soft. absent: Guarding, Hernia, Rebound, Rigid - Extremities Exam Extremities exam: Negative for: joint swelling - Neurological Exam Neurological exam: Alert, Oriented x3 - Psychiatric Exam Psychiatric exam: Normal Affect, Normal Mood - Skin Skin Exam: Dry, Intact, Normal Color, Warm Results - Vital Signs Recent Vital Signs: Last Vital Signs Temp 98.4 F 01/02/18 08:31 Pulse 71 01/02/18 08:31 Resp 20 01/02/18 08:31 BP 148/82 01/02/18 08:31 Pulse Ox 100 01/02/18 08:31 - Labs Result Diagrams: 01/01/18 14:08 01/01/18 14:08 Labs: Laboratory Results - last 24 hr 01/01/18 01/01/18 01/01/18 13:51 14:08 14:08 WBC 17.6 H D RBC 4.42 Hgb 13.9 Hct 39.9 MCV 90.3 MCH 31.5 H MCHC 34.9 RDW 13.1 Plt Count 303 MPV 8.2 Neut % (Auto) 85.2 H Lymph % (Auto) 9.3 L [place] % (Auto) 4.6 Eos % (Auto) 0.4 Baso % (Auto) 0.5 Neut # (Auto) 15.0 H Lymph # (Auto) 1.6 [place] # (Auto) 0.8 Eos # (Auto) 0.1 Baso # (Auto) 0.1 Neutrophils % (Manual) 91 H Lymphocytes % (Manual) 6 L Monocytes % (Manual) 3 Platelet Estimate Normal Anisocytosis (manual) Slight Sodium 140 Potassium 4.2 Chloride 99 Carbon Dioxide 25 Anion Gap 20 BUN 13 Creatinine 0.8 Est GFR ( Amer) > 60 Est GFR (Non-Af Amer) > 60 Random Glucose 113 H Calcium 9.5 Total Bilirubin 0.7 AST 26 ALT 18 L D Alkaline Phosphatase 78 Total Protein 8.3 Albumin 4.7 Globulin 3.7 Albumin/Globulin Ratio 1.3 Lipase 576 H Urine Color Yellow Urine Clarity Clear Urine pH 6.0 Ur Specific [place] 1.019 Urine Protein Negative Urine Glucose (UA) Normal Urine Ketones Negative Urine Blood Negative Urine Nitrate Negative Urine Bilirubin Negative Urine Urobilinogen Normal Ur Leukocyte Esterase Neg Urine WBC (Auto) 1 Urine RBC (Auto) 1 Ur Squamous Epith Cells < 1 Assessment & Plan - Assessment and Plan (Free Text) Assessment: Connor Degroot is a 26 year old male with history of Alcoholic Pancreatitis presenting with abdominal pain. Abd pain, currently only meets 1 out 3 criteria for acute pancreatitis hx of alcoholic pancreatitis elevated lipase Plan: >continue aggressive IVFs, NS 200cc/hr for first 24 hours >titrate down IVFs as he tolerated >counselled on alcohol cessation >suspicion for alcoholic etiology of pancreatitis >will get abd/pel CT to confirm pancreatitis >will get TG levels >further recommendations based on clinical course >pain management as per primary D/W Dr. Uribe <Jairo Uribe - Last Filed: 01/02/18 16:20> Meds - Medications Medications: Current Medications Enoxaparin Sodium (Lovenox) 40 mg SC DAILY [facility] Last Admin: 01/02/18 09:39 Dose: 40 mg Hydromorphone HCl (Dilaudid) 1 mg IVP Q6H PRN PRN Reason: Pain, severe (8-10) Last Admin: 01/02/18 15:28 Dose: 1 mg Sodium Chloride (Sodium Chloride 0.9%) 1,000 mls @ 200 mls/hr IV .Q5H [facility] Last Admin: 01/02/18 13:25 Dose: 200 mls/hr Pantoprazole Sodium (Protonix Inj) 40 mg IVP DAILY [facility] Last Admin: 01/02/18 09:35 Dose: 40 mg Results - Vital Signs Recent Vital Signs: Last Vital Signs Temp 98.4 F 01/02/18 08:31 Pulse 71 01/02/18 08:31 Resp 20 01/02/18 08:31 BP 148/82 01/02/18 08:31 Pulse Ox 100 01/02/18 08:31 - Labs Result Diagrams: 01/01/18 14:08 01/01/18 14:08 Labs: Laboratory Results - last 24 hr 01/02/18 10:40 Triglycerides 253 H Attending/Attestation - Attestation I have personally seen and examined this patient.: Yes I have fully participated in the care of the patient.: Yes I have reviewed all pertinent clinical information: Yes Notes (Text): 01/02/18 16:19 27 year old male with h/o etoh abuse in the past who presents with abdominal pain. Questionable h/o pancreatitis. Lipase has only been mildly elevated. Await CT scan. Recommend IV hydration and pain control and bowel rest in the interim
[2018-01-02] MEDS: HYDROmorphone 1 mg/ml ISec IVP PRN ×2 (15:28→21:19)
--- NOTE | 2018-01-02 17:16 | CP.PCM.PN ---
Subjective - Date & Time of Evaluation Date of Evaluation: 01/02/18 Time of Evaluation: 08:20 - Subjective Subjective: clinically same Objective - Vital Signs/Intake and Output Vital Signs (last 24 hours): Temp Pulse Resp BP Pulse Ox 98.1 F 86 20 134/86 100 01/02/18 15:15 01/02/18 15:15 01/02/18 15:15 01/02/18 15:15 01/02/18 15:15 Intake and Output: 01/02/18 01/02/18 06:59 18:59 Intake Total 900 2320 Output Total 4 Balance 900 2316 - Medications Medications: Current Medications Enoxaparin Sodium (Lovenox) 40 mg SC DAILY [facility] Last Admin: 01/02/18 09:39 Dose: 40 mg Hydromorphone HCl (Dilaudid) 1 mg IVP Q6H PRN PRN Reason: Pain, severe (8-10) Last Admin: 01/02/18 15:28 Dose: 1 mg Sodium Chloride (Sodium Chloride 0.9%) 1,000 mls @ 200 mls/hr IV .Q5H [facility] Last Admin: 01/02/18 13:25 Dose: 200 mls/hr Pantoprazole Sodium (Protonix Inj) 40 mg IVP DAILY [facility] Last Admin: 01/02/18 09:35 Dose: 40 mg - Labs Labs: 01/01/18 14:08 01/01/18 14:08 - Constitutional Appears: Well - Head Exam Head Exam: ATRAUMATIC, NORMAL INSPECTION, NORMOCEPHALIC - Eye Exam Eye Exam: EOMI, Normal appearance, PERRL Pupil Exam: NORMAL ACCOMODATION, PERRL - ENT Exam ENT Exam: Mucous Membranes Moist, Normal Exam - Neck Exam Neck Exam: Full ROM, Normal Inspection. absent: Lymphadenopathy - Respiratory Exam Respiratory Exam: Decreased Breath Sounds - Cardiovascular Exam Cardiovascular Exam: REGULAR RHYTHM, +S1, +S2 - GI/Abdominal Exam GI & Abdominal Exam: Soft, Diminished Bowel Sounds - Rectal Exam Rectal Exam: Deferred
--- NOTE | 2018-01-02 18:01 | CT ---
PROCEDURE: CT scan abdomen and pelvis 01/02/2018 HISTORY: Abdominal pain; rule out pancreatitis. COMPARISON: Comparison made with prior CT scan abdomen pelvis 12/20/2016 the TECHNIQUE: Contiguous axial images of the abdomen and pelvis. Oral contrast was administered. No IV contrast given. Coronal and Sagittal reformats generated. Radiation dose: Total exam DLP = This CT exam was performed using one or more of the following dose reduction techniques: Automated exposure control, adjustment of the mA and/or kV according to patient size, and/or use of iterative reconstruction technique. FINDINGS: LOWER THORAX: Lung bases are clear. No infiltrate effusion or basilar pneumothorax. Tiny hiatal hernia. Heart size within range of normal. No significant pericardial effusion. LIVER: Liver exhibits normal size. Minimal fatty hepatic infiltration. GALLBLADDER AND BILE DUCTS: Gallbladder is physiologically distended. No evidence of intraluminal gallbladder calculi. PANCREAS: There mild edematous changes of the pancreatic head and body with infiltration and fluid in the peripancreatic mesenteric consistent with this patient's history of acute pancreatitis. . Note that the amount of peripancreatic fluid has diminished when compared with the prior study. SPLEEN: Spleen exhibits normal size. Small splenules adjacent to chi the inferomedial margin of the main body of the spleen unchanged. ADRENALS: No adrenal lesions. KIDNEYS AND URETERS: Kidneys demonstrate symmetric nephrograms. No change 5.4 mm nonobstructing calculus lower pole right kidney. The the BLADDER: Urinary bladder is incompletely distended which in part accounts for thick-walled appearance muscular hypertrophy may contribute. Rule out cystitis. REPRODUCTIVE: Unremarkable. APPENDIX: Normal appearing appendix best seen on axial image number [id number]. BOWEL: Evaluation of the bowel is somewhat limited due to incomplete opacification. Stomach is partially distended with oral contrast material some liquid and air. Visualized loops of small bowel exhibit normal contour and caliber. No evidence of acute mechanical small bowel obstruction. Small amount of oral contrast material has extended into the cecum. Moderate amount of stool is present throughout the large bowel consistent with fecal retention/ constipation. Scattered colonic diverticula however no radiographic evidence of acute diverticulitis. PERITONEUM: No gross free intraperitoneal air. Small fat containing umbilical hernia. LYMPH NODES: Few small retroperitoneal lymph nodes are present. VASCULATURE: Unremarkable. No aortic aneurysm. BONES: Minimal superior endplate deformity T11 segment. OTHER FINDINGS: None. IMPRESSION: Findings consistent with acute pancreatitis as described. Minimal fatty hepatic infiltration. Scattered colonic diverticula without radiographic evidence of acute diverticulitis. The bladder wall thickening in part due to incomplete distention and muscular hypertrophy. Cystitis not excluded.
[2018-01-03] MEDS ORDERED: Morphine 4 MG/ML VIAL IV ONE (03:17)
[2018-01-03] MEDS: Sodium Chloride 0.9% 1,000 ML IV SCH ×6 (04:04→19:50)
--- NOTE | 2018-01-03 06:12 | CP.PCM.PN ---
Subjective - Date & Time of Evaluation Date of Evaluation: 01/03/18 Time of Evaluation: 06:04 - Subjective Subjective: PGY-[address] Gonzalez's service: Pt seen and examined at bedside. Nursing reports no acute events overnight. Patient reports abdominal pain, 4-5/10 in severity, located in epigastric/LUQ that radiates to the back. Patient denies fever/chills, N/V overnight. Patient states he is "hungry" this AM and would like trial of solid food. Objective - Vital Signs/Intake and Output Vital Signs (last 24 hours): Temp Pulse Resp BP Pulse Ox 99.3 F 71 20 153/98 H 100 01/03/18 00:00 01/03/18 00:00 01/03/18 00:00 01/03/18 00:00 01/03/18 00:00 Intake and Output: 01/02/18 01/03/18 18:59 06:59 Intake Total 2320 1850 Output Total 4 Balance 2316 1850 - Medications Medications: Current Medications Enoxaparin Sodium (Lovenox) 40 mg SC DAILY [facility] Last Admin: 01/02/18 09:39 Dose: 40 mg Hydromorphone HCl (Dilaudid) 1 mg IVP Q6H PRN PRN Reason: Pain, severe (8-10) Last Admin: 01/02/18 21:19 Dose: 1 mg Sodium Chloride (Sodium Chloride 0.9%) 1,000 mls @ 200 mls/hr IV .Q5H [facility] Last Admin: 01/03/18 04:04 Dose: 200 mls/hr Pantoprazole Sodium (Protonix Inj) 40 mg IVP DAILY [facility] Last Admin: 01/02/18 09:35 Dose: 40 mg - Labs Labs: 01/01/18 14:08 01/01/18 14:08 - Constitutional Appears: Non-toxic, No Acute Distress - Head Exam Head Exam: ATRAUMATIC, NORMAL INSPECTION - Eye Exam Eye Exam: EOMI. absent: Scleral icterus Pupil Exam: PERRL - ENT Exam ENT Exam: Mucous Membranes Moist - Neck Exam Neck Exam: Full ROM - Respiratory Exam Respiratory Exam: Clear to Ausculation Bilateral, NORMAL BREATHING PATTERN - Cardiovascular Exam Cardiovascular Exam: REGULAR RHYTHM, +S1, +S2 - GI/Abdominal Exam GI & Abdominal Exam: Soft, Tenderness (LUQ/epigastric), Normal Bowel Sounds - Extremities Exam Extremities Exam: Normal Inspection. absent: Pedal Edema, Tenderness - Back Exam Back Exam: absent: CVA tenderness (L), CVA tenderness (R) - Neurological Exam Neurological Exam: Alert, Awake, Oriented x3 - Psychiatric Exam Psychiatric exam: Normal Affect, Normal Mood - Skin Skin Exam: Dry, Normal Color, Warm Assessment and Plan - Assessment and Plan (Free Text) Plan: Acute Pancreatitis Admit to med/surg CT A/P (01/02/18): C/w acute pancreatitis. Minimal fatty hepatic infiltration. Scattered colonic diverticula w/o evidence of acute diverticulitis. Lipase 576 Etiology: Possible alcohol Dr. Lincoln, GI golf tournament consultant, help appreciated - Encouraged cessation of NSAID, EtOH - may benefit from outpatient EUS Dilaudid 1mg IV Q6H PRN NS @ 200cc/hr Will trial soft food for lunch Diverticulosis CT A/P (01/02/18): C/w acute pancreatitis. Minimal fatty hepatic infiltration. Scattered colonic diverticula w/o evidence of acute diverticulitis. Pt counseled on high fiber diet, hydration importance Elevated Triglycerides TG 253 Start Lovaza 1 gm PO BID Leukocytosis Resolved WBC 17.6 on admssion, w/ left shift Etiology: Pancreatitis Monitor Prophylaxis Lovenox 40mg SC Daily Protonix 40mg IV Daily [facility] Mirza Mariscal PGY-[address] Gonzalez
[2018-01-03 07:24] LABS: BASO # 0.1 K/uL (0.0-0.2); BASO % 0.7 % (0.0-2.0); EOS # 0.3 K/uL (0.0-0.7); EOS % 3.3 % (0.0-4.0); HEMOGLOBIN 11.5 g/dL (12.0-18.0); LYMPH # 3.3 K/uL (1.0-4.3); LYMPH % 31.2 % (20.0-40.0); MEAN CELL VOLUME 90.4 fL (80.0-94.0); MEAN CORPUSCULAR HEMOGLOBIN 31.2 pg (27.0-31.0); MEAN CORPUSCULAR HGB CONC 34.5 g/dL (33.0-37.0); MONO # 0.6 K/uL (0.0-0.8); MONO % 5.6 % (0.0-10.0); NEUT # 6.2 K/uL (1.8-7.0); NEUT % 59.2 % (50.0-75.0); RBC 3.68 Mil/uL (4.40-5.90); WHITE BLOOD COUNT 10.5 K/uL (4.8-10.8)
[2018-01-03 08:07] LABS: ALB/GLOB RATIO 1.2 (1.0-2.1); ALBUMIN 3.5 g/dL (3.5-5.0); ALT/SGPT 14 U/L (21-72); AST/SGOT 16 U/L (17-59); BLOOD UREA NITROGEN 5 mg/dL (9-20); CALCIUM 8.7 mg/dl (8.6-10.4); GFR AFRICAN-AMERICAN > 60; GFR NON-AFRICAN AMERICAN > 60
--- NOTE | 2018-01-03 08:16 | CP.PCM.PN ---
<Savlatore Vega - Last Filed: 01/03/18 09:51> Subjective - Date & Time of Evaluation Date of Evaluation: 01/03/18 Time of Evaluation: 07:10 - Subjective Subjective: PGY5 GI Fellow Progress Note Patient seen and examined bedside this morning. The patient states that he continues to have epigastric abdominal pain, now radiating towards his back. Denies nausea, vomiting. Asking for more substantial food. Admits to daily use of Advil PM (2 tabs nightly). 12 system ROS performed and negative except where stated. Objective - Vital Signs/Intake and Output Vital Signs (last 24 hours): Temp Pulse Resp BP Pulse Ox 98.2 F 73 20 133/79 99 01/03/18 07:40 01/03/18 07:40 01/03/18 07:40 01/03/18 07:40 01/03/18 07:40 Intake and Output: 01/03/18 01/03/18 06:59 18:59 Intake Total 3690 Output Total 1000 Balance 2690 - Medications Medications: Current Medications Enoxaparin Sodium (Lovenox) 40 mg SC DAILY [facility] Last Admin: 01/02/18 09:39 Dose: 40 mg Hydromorphone HCl (Dilaudid) 1 mg IVP Q6H PRN PRN Reason: Pain, severe (8-10) Last Admin: 01/02/18 21:19 Dose: 1 mg Sodium Chloride (Sodium Chloride 0.9%) 1,000 mls @ 200 mls/hr IV .Q5H [facility] Last Admin: 01/03/18 04:04 Dose: 200 mls/hr Pantoprazole Sodium (Protonix Inj) 40 mg IVP DAILY [facility] Last Admin: 01/02/18 09:35 Dose: 40 mg - Labs Labs: 01/03/18 07:15 01/03/18 07:15 - Constitutional Appears: Non-toxic, No Acute Distress - Eye Exam Eye Exam: EOMI, PERRL - ENT Exam ENT Exam: Mucous Membranes Moist - Respiratory Exam Respiratory Exam: Clear to Ausculation Bilateral. absent: Rales, Rhonchi, Wheezes - GI/Abdominal Exam GI & Abdominal Exam: Soft, Tenderness (epigastric), Normal Bowel Sounds. absent : Distended, Firm, Guarding, Rigid, Organomegaly - Extremities Exam Extremities Exam: Normal Inspection. absent: Pedal Edema - Neurological Exam Neurological Exam: Alert, Awake, Oriented x3 - Psychiatric Exam Psychiatric exam: Normal Affect, Normal Mood - Skin Skin Exam: Dry, Warm Assessment and Plan - Assessment and Plan (Free Text) Assessment: Patient is a 27yo male with PMHx significant for EtOH pancreatitis who presented to the ED with abdominal pain. -Acute pancreatitis -H/O heavy NSAID use Plan: -CT A/P reviewed -Unclear etiology of acute pancreatitis - recent EtOH use but none leading up to admission per patient -Would advance diet per patient request -Continue with IVF as ordered, discontinue when tolerating adequate PO -Analgesia per primary service -TGs elevated but not to degree that might cause pancreatitis -May benefit from outpatient EUS -EtOH and smoking cessation -Encourage cessation of Advil PM use <Patti Hernandez - Last Filed: 01/03/18 16:06> Objective - Vital Signs/Intake and Output Vital Signs (last 24 hours): Temp Pulse Resp BP Pulse Ox 98.5 F 83 20 139/83 98 01/03/18 15:00 01/03/18 15:00 01/03/18 15:00 01/03/18 15:00 01/03/18 15:00 Intake and Output: 01/03/18 01/03/18 06:59 18:59 Intake Total 3690 1600 Output Total 1000 Balance 2690 1600 - Medications Medications: Current Medications Enoxaparin Sodium (Lovenox) 40 mg SC DAILY [facility] Last Admin: 01/03/18 09:16 Dose: 40 mg Hydromorphone HCl (Dilaudid) 1 mg IVP Q6H PRN PRN Reason: Pain, severe (8-10) Last Admin: 01/03/18 10:15 Dose: 1 mg Sodium Chloride (Sodium Chloride 0.9%) 1,000 mls @ 200 mls/hr IV .Q5H [facility] Last Admin: 01/03/18 14:19 Dose: 200 mls/hr Pantoprazole Sodium (Protonix Inj) 40 mg IVP DAILY [facility] Last Admin: 01/03/18 09:17 Dose: 40 mg - Labs Labs: 01/03/18 07:15 01/03/18 07:15 Attending/Attestation - Attestation I have personally seen and examined this patient.: Yes I have fully participated in the care of the patient.: Yes I have reviewed all pertinent clinical information, including history, physical exam and plan: Yes Notes (Text): 01/03/18 16:02 This is a 27 year old male with PMHx significant for EtOH pancreatitis who presented to the ED with abdominal pain with acute uncomplicated pancreatitis. States stopped drinking alcohol few months ago. Asking for pain medications. No choledocholithiasis. Diet low fat as tolerated. Elevated TG. Smoking cessation. Encourage EtOH and smoking cessation
[2018-01-03] MEDS: Enoxaparin 40 mg Syringe SC SCH (09:16)
--- NOTE | 2018-01-03 12:48 | CP.PCM.PN ---
Subjective - Date & Time of Evaluation Date of Evaluation: 01/03/18 Time of Evaluation: 08:20 - Subjective Subjective: clinically same Objective - Vital Signs/Intake and Output Vital Signs (last 24 hours): Temp Pulse Resp BP Pulse Ox 98.2 F 73 20 133/79 99 01/03/18 07:40 01/03/18 07:40 01/03/18 07:40 01/03/18 07:40 01/03/18 07:40 Intake and Output: 01/03/18 01/03/18 06:59 18:59 Intake Total 3690 Output Total 1000 Balance 2690 - Medications Medications: Current Medications Enoxaparin Sodium (Lovenox) 40 mg SC DAILY [facility] Last Admin: 01/03/18 09:16 Dose: 40 mg Hydromorphone HCl (Dilaudid) 1 mg IVP Q6H PRN PRN Reason: Pain, severe (8-10) Last Admin: 01/03/18 10:15 Dose: 1 mg Sodium Chloride (Sodium Chloride 0.9%) 1,000 mls @ 200 mls/hr IV .Q5H [facility] Last Admin: 01/03/18 09:10 Dose: 200 mls/hr Pantoprazole Sodium (Protonix Inj) 40 mg IVP DAILY [facility] Last Admin: 01/03/18 09:17 Dose: 40 mg - Labs Labs: 01/03/18 07:15 01/03/18 07:15 - Constitutional Appears: Well - Head Exam Head Exam: ATRAUMATIC, NORMAL INSPECTION, NORMOCEPHALIC - Eye Exam Eye Exam: EOMI, Normal appearance, PERRL Pupil Exam: NORMAL ACCOMODATION, PERRL - ENT Exam ENT Exam: Mucous Membranes Moist, Normal Exam - Neck Exam Neck Exam: Full ROM, Normal Inspection. absent: Lymphadenopathy - Respiratory Exam Respiratory Exam: Decreased Breath Sounds - Cardiovascular Exam Cardiovascular Exam: REGULAR RHYTHM, +S1, +S2 - GI/Abdominal Exam GI & Abdominal Exam: Soft, Diminished Bowel Sounds - Rectal Exam Rectal Exam: Deferred
[2018-01-03 16:08] LABS: LIPASE 196 U/L (23-300)
[2018-01-04] MEDS: Sodium Chloride 0.9% 1,000 ML IV SCH ×7 (01:12→15:00)
--- NOTE | 2018-01-04 07:31 | CP.PCM.PN ---
<Salvatore Vega - Last Filed: 01/04/18 09:11> Subjective - Date & Time of Evaluation Date of Evaluation: 01/04/18 Time of Evaluation: 06:45 - Subjective Subjective: PGY5 GI Fellow Progress Note Patient seen and examined bedside this morning. The patient states that he is feeling better today. Tolerated diet without issue. Passed normal BM yetserday. No nausea, vomiting. 12 system ROS performed and negative except where stated. Objective - Vital Signs/Intake and Output Vital Signs (last 24 hours): Temp Pulse Resp BP Pulse Ox 97.7 F 81 20 132/81 99 01/04/18 00:00 01/04/18 00:00 01/04/18 00:00 01/04/18 00:00 01/04/18 00:00 Intake and Output: 01/04/18 01/04/18 06:59 18:59 Intake Total 3740 Balance 3740 - Medications Medications: Current Medications Enoxaparin Sodium (Lovenox) 40 mg SC DAILY [facility] Last Admin: 01/03/18 09:16 Dose: 40 mg Hydromorphone HCl (Dilaudid) 1 mg IVP Q6H PRN PRN Reason: Pain, severe (8-10) Last Admin: 01/04/18 06:50 Dose: 1 mg Sodium Chloride (Sodium Chloride 0.9%) 1,000 mls @ 200 mls/hr IV .Q5H [facility] Last Admin: 01/04/18 06:53 Dose: 200 mls/hr Pantoprazole Sodium (Protonix Inj) 40 mg IVP DAILY [facility] Last Admin: 01/03/18 09:17 Dose: 40 mg - Labs Labs: 01/03/18 07:15 01/03/18 07:15 - Constitutional Appears: Non-toxic, No Acute Distress - Eye Exam Eye Exam: EOMI, PERRL - ENT Exam ENT Exam: Mucous Membranes Moist - Respiratory Exam Respiratory Exam: Clear to Ausculation Bilateral. absent: Rales, Rhonchi, Wheezes - Cardiovascular Exam Cardiovascular Exam: RRR, +S1, +S2 - GI/Abdominal Exam GI & Abdominal Exam: Soft, Normal Bowel Sounds. absent: Distended, Firm, Guarding, Rigid, Tenderness, Organomegaly - Extremities Exam Extremities Exam: Normal Inspection. absent: Pedal Edema - Neurological Exam Neurological Exam: Alert, Awake, Oriented x3 - Psychiatric Exam Psychiatric exam: Normal Affect, Normal Mood - Skin Skin Exam: Dry, Warm Assessment and Plan - Assessment and Plan (Free Text) Assessment: Patient is a 27yo male with PMHx significant for EtOH pancreatitis who presented to the ED with abdominal pain. -Acute pancreatitis -H/O heavy NSAID use Plan: -Unclear etiology of acute pancreatitis - recent EtOH use but none leading up to admission per patient, suspect this may be underlying etiology -Tolerating diet -Pain controlled at this time -If continues tolerating diet and not requiring analgesia, OK with D/C with outpatient follow up with Dr Uribe, consider outpatient EGD/EUS -Stop Advil PM use (2 tabs nightly for extended period of time) -EtOH and smoking cessation <Kurt Lincoln - Last Filed: 01/04/18 10:42> Objective - Vital Signs/Intake and Output Vital Signs (last 24 hours): Temp Pulse Resp BP Pulse Ox 98 F 85 20 124/79 98 01/04/18 08:00 01/04/18 08:00 01/04/18 08:00 01/04/18 08:00 01/04/18 08:00 Intake and Output: 01/04/18 01/04/18 06:59 18:59 Intake Total 3740 Balance 3740 - Medications Medications: Current Medications Enoxaparin Sodium (Lovenox) 40 mg SC DAILY [facility] Last Admin: 01/04/18 09:49 Dose: 40 mg Hydromorphone HCl (Dilaudid) 1 mg IVP Q6H PRN PRN Reason: Pain, severe (8-10) Last Admin: 01/04/18 06:50 Dose: 1 mg Sodium Chloride (Sodium Chloride 0.9%) 1,000 mls @ 200 mls/hr IV .Q5H [facility] Last Admin: 01/04/18 09:56 Dose: Not Given Pantoprazole Sodium (Protonix Inj) 40 mg IVP DAILY [facility] Last Admin: 01/04/18 09:49 Dose: 40 mg - Labs Labs: 01/04/18 08:28 01/04/18 08:28 Attending/Attestation - Attestation I have personally seen and examined this patient.: Yes I have fully participated in the care of the patient.: Yes I have reviewed all pertinent clinical information, including history, physical exam and plan: Yes Notes (Text): 01/04/18 10:40 I have seen and examined patient with GI fellow. No acute events overnight, he is seen resting in bed comfortably. He denies abdominal pain, nausea, vomiting , fever/chills. Tolerating PO diet without difficulty. Review of vitals from today are normal. Acute pancreatitis, likely secondary to ETOH Abdominal pain, resolved - Low fat diet as tolerated - ETOH and cigarette smoking cessation counseling - No further planned intervention, from GI standpoint ok to discharge patient with subsequent outpatient follow up. Will sign off case, please reconsult as necessary, thank you.
[2018-01-04 08:21] VITALS: BP 124/79; PULSE 85; TEMP 98; O2SAT 98
[2018-01-04 08:36] LABS: BASO # 0.1 K/uL (0.0-0.2); BASO % 0.9 % (0.0-2.0); EOS # 0.4 K/uL (0.0-0.7); EOS % 3.9 % (0.0-4.0); HEMOGLOBIN 10.8 g/dL (12.0-18.0); LYMPH # 3.2 K/uL (1.0-4.3); LYMPH % 32.4 % (20.0-40.0); MEAN CELL VOLUME 90.5 fL (80.0-94.0); MEAN CORPUSCULAR HEMOGLOBIN 31.5 pg (27.0-31.0); MEAN CORPUSCULAR HGB CONC 34.8 g/dL (33.0-37.0); MEAN PLATELET VOLUME 8.6 fL (7.2-11.7); MONO # 0.5 K/uL (0.0-0.8); NEUT # 5.7 K/uL (1.8-7.0); NEUT % 57.8 % (50.0-75.0); RBC 3.43 Mil/uL (4.40-5.90); RED CELL DISTRIBUTION WIDTH 12.9 % (11.5-14.5); WHITE BLOOD COUNT 9.8 K/uL (4.8-10.8)
[2018-01-04 08:54] LABS: ALB/GLOB RATIO 1.2 (1.0-2.1); ALBUMIN 3.3 g/dL (3.5-5.0); ALT/SGPT 15 U/L (21-72); AST/SGOT 17 U/L (17-59); BLOOD UREA NITROGEN 6 mg/dL (9-20); CALCIUM 8.8 mg/dl (8.6-10.4); GFR AFRICAN-AMERICAN > 60; GFR NON-AFRICAN AMERICAN > 60; LIPASE 195 U/L (23-300)
--- NOTE | 2018-01-04 09:38 | CP.PCM.PN ---
Subjective - Date & Time of Evaluation Date of Evaluation: 01/04/18 Time of Evaluation: 09:38 - Subjective Subjective: Progress Note for Dr. Gonzalez's Service Pt seen and examined at bedside. He reports that his pain is better controlled currently but he continues to have some pain in his back. No other acute complaints. He is tolerating PO intake. Objective - Vital Signs/Intake and Output Vital Signs (last 24 hours): Temp Pulse Resp BP Pulse Ox 98 F 85 20 124/79 98 01/04/18 08:00 01/04/18 08:00 01/04/18 08:00 01/04/18 08:00 01/04/18 08:00 Intake and Output: 01/04/18 01/04/18 06:59 18:59 Intake Total 3740 Balance 3740 - Medications Medications: Current Medications Enoxaparin Sodium (Lovenox) 40 mg SC DAILY [facility] Last Admin: 01/03/18 09:16 Dose: 40 mg Hydromorphone HCl (Dilaudid) 1 mg IVP Q6H PRN PRN Reason: Pain, severe (8-10) Last Admin: 01/04/18 06:50 Dose: 1 mg Sodium Chloride (Sodium Chloride 0.9%) 1,000 mls @ 200 mls/hr IV .Q5H [facility] Last Admin: 01/04/18 06:53 Dose: 200 mls/hr Pantoprazole Sodium (Protonix Inj) 40 mg IVP DAILY [facility] Last Admin: 01/03/18 09:17 Dose: 40 mg - Labs Labs: 01/04/18 08:28 01/04/18 08:28 - Constitutional Appears: No Acute Distress - Head Exam Head Exam: ATRAUMATIC - Eye Exam Eye Exam: EOMI, Normal appearance - ENT Exam ENT Exam: Mucous Membranes Moist - Respiratory Exam Respiratory Exam: Clear to Ausculation Bilateral, NORMAL BREATHING PATTERN. absent: Rhonchi, Wheezes - Cardiovascular Exam Cardiovascular Exam: REGULAR RHYTHM, +S1, +S2 - GI/Abdominal Exam GI & Abdominal Exam: Soft. absent: Tenderness - Neurological Exam Neurological Exam: Alert, Awake, Oriented x3 - Psychiatric Exam Psychiatric exam: Normal Affect, Normal Mood - Skin Skin Exam: Dry, Warm Assessment and Plan - Assessment and Plan (Free Text) Plan: Acute Pancreatitis Admit to med/surg CT A/P (01/02/18): C/w acute pancreatitis. Minimal fatty hepatic infiltration. Scattered colonic diverticula w/o evidence of acute diverticulitis. Lipase 576 Etiology: Possible alcohol Dr. Hernandez, GI automation consultant, recs appreciated- -Unclear etiology of acute pancreatitis - recent EtOH use but none leading up to admission per patient, suspect this may be underlying etiology -Tolerating diet -Pain controlled at this time -If continues tolerating diet and not requiring analgesia, OK with D/C with outpatient follow up with Dr Uribe, consider outpatient EGD/EUS -Stop Advil PM use (2 tabs nightly for extended period of time) -EtOH and smoking cessation - Low fat diet as tolerated - ETOH and cigarette smoking cessation counseling - No further planned intervention, from GI standpoint ok to discharge patient with subsequent outpatient follow up. Will sign off case, please reconsult as necessary, thank you. Dilaudid 1mg IV Q6H PRN NS @ 200cc/hr Tolerating PO intake Diverticulosis CT A/P (01/02/18): C/w acute pancreatitis. Minimal fatty hepatic infiltration. Scattered colonic diverticula w/o evidence of acute diverticulitis. Pt counseled on high fiber diet, hydration importance No acute interventions Elevated Triglycerides TG 253 Started Lovaza 1 gm PO BID 01/03/18 Leukocytosis- resolved Resolved WBC 17.6 on admssion, w/ left shift--> now 10.8 Etiology: Pancreatitis Monitor Prophylaxis Lovenox 40mg SC Daily Protonix 40mg IV Daily [facility] Patient will be prepped for D/C home if he continues to tolerate diet. Will need follow up with Dr. Gonzalez/Rony. Case discussed with Dr. Gonzalez All management as per Dr. Gonzalez
[2018-01-04] MEDS: Enoxaparin 40 mg Syringe SC SCH (09:49)
[2018-01-04] MEDS ORDERED: HYDROmorphone 1 mg/ml ISec IVP PRN (16:30)
== END 2018-01-04 17:11 | disposition home or self-care (01) | DRG 440 ==
LOC: C.ER 13:17 → C.9E 15:00 → C.3T 15:53
PROVIDERS: ADMIT Internal Medicine Nephrology; ATTEND Internal Medicine Nephrology
DX: K85.20 Alcohol induced acute pancreatitis without necrosis or infection (principal); F17.210 Nicotine dependence, cigarettes, uncomplicated; Z79.1 Long term (current) use of non-steroidal anti-inflammatories (NSAID); F10.10 Alcohol abuse, uncomplicated; J45.909 Unspecified asthma, uncomplicated

== ENCOUNTER 2018-10-13 00:05 | Emergency (ER) | payer MEDICARE, OTHER ==
[2018-10-13 00:05] VITALS: BMI 32.3
[2018-10-13 00:19] VITALS: BP 137/80; PULSE 116; RESP 22; TEMP 98.9; O2SAT 98
--- NOTE | 2018-10-13 01:22 | C.PDOC ---
History Of Present Illness 28 year old male presents to the ER with a complaint of a painful mass to the left axilla for the past 1.5 weeks. Patient was started on a z-pack by his PMD, states it has improved and is now draining since yesterday. He reports he was advised by his PMD to come in for possible I&D. Denies fever. Time Seen by Provider: 10/13/18 00:23 Chief Complaint (Nursing): Abnormal Skin Integrity History Per: Patient History/Exam Limitations: no limitations Onset/Duration Of Symptoms: Days (1.5 weeks) Current Symptoms Are (Timing): Still Present Location Of Injury: Left: Arm (axilla) Quality Of Symptoms: Draining Recent travel outside of the [place]: No Past Medical History Reviewed: Historical Data, Nursing Documentation, Vital Signs Vital Signs: Last Vital Signs Temp 98.9 F 10/13/18 00:14 Pulse 116 H 10/13/18 00:14 Resp 22 10/13/18 00:14 BP 137/80 10/13/18 00:14 Pulse Ox 98 10/13/18 00:14 - Medical History PMH: Asthma, Depression, Pancreatitis Denies: Chronic Kidney Disease Family History: States: Unknown Family Hx - Social History Hx Tobacco Use: No Hx Alcohol Use: Yes (SOCIALLY) Hx Substance Use: No - Immunization History Hx Tetanus Toxoid Vaccination: No Hx Influenza Vaccination: Yes Hx Pneumococcal Vaccination: No Review Of Systems Constitutional: Negative for: Fever, Chills Skin: Positive for: Other (Draining mass to left axilla) Physical Exam - Physical Exam Appears: Non-toxic Skin: Warm, Dry Head: Atraumatic, Normacephalic Eye(s): bilateral: Normal Inspection Extremity: Other (3x4cm mass, mildly tender, draining.) Pulses: Left Radial: Normal, Right Radial: Normal Neurological/Psych: Oriented x3, Normal Speech, Normal Motor, Normal Sensation ED Course And Treatment O2 Sat by Pulse Oximetry: 98 (room air) Pulse Ox Interpretation: Normal Progress Note: Patient is resting comfortably in no acute distress, states the abscess as been improving, no need for I&D at this time. Patient completed zithromax a week ago, will start on keflex PO and discharge home with instructions to follow up with PMD. Disposition Counseled Patient/Family Regarding: Diagnosis, Need For Followup, Rx Given - Disposition Referrals: [facility] [Outside] Disposition: HOME/ ROUTINE Disposition Time: 01:20 Condition: STABLE Additional Instructions: Please continue to apply warm compress to area Take medications as directed Follow up with PMD Return to ER if worse Prescriptions: Cephalexin [Keflex] 500 mg PO Q6 #28 capsule Instructions: Boil (DC) Forms: [employer] (Persian) - POA Present On Arrival: None - Clinical Impression Clinical Impression: Abscess of left axilla - PA / WHEEL AND AXLE INSPECTOR / Resident Statement MD/DO has reviewed & agrees with the documentation as recorded. - Scribe Statement The provider has reviewed the documentation as recorded by the Scribchiquis Wiggins All medical record entries made by the Alyseibchiquis were at my direction and personally dictated by me. I have reviewed the chart and agree that the record accurately reflects my personal performance of the history, physical exam, medical decision making, and the department course for this patient. I have also personally directed, reviewed, and agree with the discharge instructions and disposition.
== END 2018-10-13 01:28 | disposition home or self-care (01) ==
LOC: C.ER 00:05
DX: L02.412 Cutaneous abscess of left axilla (principal)

== ENCOUNTER 2018-10-27 13:42 | Emergency (ER) | payer OTHER ==
[2018-10-27 13:42] VITALS: BMI 32.3
[2018-10-27 14:26] VITALS: RESP 18
[2018-10-27 15:03] LABS: BASO # 0.1 K/uL (0.0-0.2); BASO % 0.6 % (0.0-2.0); EOS # 0.2 K/uL (0.0-0.7); EOS % 1.5 % (0.0-4.0); LYMPH # 2.7 K/uL (1.0-4.3); LYMPH % 20.3 % (20.0-40.0); MEAN CELL VOLUME 91.4 fL (80.0-94.0); MEAN CORPUSCULAR HEMOGLOBIN 29.9 pg (27.0-31.0); MEAN CORPUSCULAR HGB CONC 32.7 g/dL (33.0-37.0); MEAN PLATELET VOLUME 8.4 fL (7.2-11.7); MONO # 0.6 K/uL (0.0-0.8); MONO % 4.4 % (0.0-10.0); NEUT # 9.9 K/uL (1.8-7.0); NEUT % 73.2 % (50.0-75.0); NRBC % 0.1 % (0.0-2.0); RBC 4.67 Mil/uL (4.40-5.90); RED CELL DISTRIBUTION WIDTH 13.3 % (11.5-14.5); WHITE BLOOD COUNT 13.5 K/uL (4.8-10.8)
[2018-10-27 15:04] LABS: HEMOGLOBIN 13.9 g/dL (12.0-18.0)
[2018-10-27 15:13] LABS: URINE AMORPHOUS SEDIMENT FEW /ul (<OCC); URINE BILIRUBIN NEGATIVE (NEGATIVE); URINE BLOOD NEGATIVE (NEGATIVE); URINE CLARITY Hazy (Clear); URINE COLOR Amber (YELLOW); URINE GLUCOSE (UA) NORMAL (Normal); URINE LEUKOCYTE ESTERASE NEG Leu/uL (Negative); URINE PROTEIN 1+ mg/dL (NEGATIVE)
[2018-10-27 15:15] LABS: ALB/GLOB RATIO 1.7 (1.0-2.1); ALBUMIN 4.7 g/dL (3.5-5.0); ALT/SGPT 11 U/L (21-72); AST/SGOT 20 U/L (17-59); BLOOD UREA NITROGEN 7 mg/dL (9-20); CALCIUM 9.7 mg/dl (8.6-10.4); GFR NON-AFRICAN AMERICAN > 60
[2018-10-27 15:29] LABS: BARBITURATES, UR NEGATIVE (NEGATIVE); OPIATES, UR NEGATIVE (NEGATIVE); PHENCYCLIDINE, UR NEGATIVE (NEGATIVE)
[2018-10-27 15:48] LABS: BENZODIAZEPINES, UR POSITIVE (NEGATIVE)
[2018-10-27 16:58] VITALS: BP 131/83; PULSE 101; TEMP 98.3
[2018-10-27 16:59] VITALS: O2SAT 99
--- NOTE | 2018-10-27 16:59 | C.PDOC ---
History Of Present Illness Pt states that he believes that a person that was staying in his house was secretly dosing him with LSD. He denies using any drugs voluntarily. Time Seen by Provider: 10/27/18 14:30 Chief Complaint (Nursing): Psychiatric Evaluation History Per: Patient Onset/Duration Of Symptoms: Days (about 2 months) Current Symptoms Are (Timing): Still Present Suicide/Self Injury Attempted (Context): None Severity: Moderate Associated Symptoms: Paranoia. denies: Suicidal Thoughts, Suicidal Plan Additional History Per: Prior Records Past Medical History Reviewed: Historical Data, Nursing Documentation, Vital Signs Vital Signs: Last Vital Signs Temp 98.2 F 10/27/18 14:23 Pulse 104 H 10/27/18 14:23 Resp 18 10/27/18 14:23 BP 126/85 10/27/18 14:23 Pulse Ox 99 10/27/18 14:23 - Medical History PMH: Asthma, Depression, Pancreatitis Family History: States: Unknown Family Hx - Social History Hx Tobacco Use: Yes Hx Alcohol Use: No Hx Substance Use: No - Immunization History Hx Tetanus Toxoid Vaccination: No Hx Influenza Vaccination: Yes Hx Pneumococcal Vaccination: No Review Of Systems Except As Marked, All Systems Reviewed And Found Negative. Constitutional: Negative for: Fever, Weakness Cardiovascular: Negative for: Chest Pain Respiratory: Negative for: Shortness of Breath Gastrointestinal: Negative for: Vomiting, Abdominal Pain Musculoskeletal: Negative for: Neck Pain Skin: Negative for: Rash Neurological: Negative for: Weakness, Numbness, Seizures Psych: Positive for: Psychosis Physical Exam - Physical Exam Appears: Non-toxic, No Acute Distress Skin: Normal Color, Warm, Dry, No Rash Head: Atraumatic, Normacephalic Eye(s): bilateral: PERRL, EOMI Neck: Normal ROM, Supple Cardiovascular: Rhythm Regular Respiratory: Normal Breath Sounds, No Accessory Muscle Use Gastrointestinal/Abdominal: Soft, No Tenderness Extremity: Normal ROM Neurological/Psych: Oriented x3, Normal Motor, Normal Sensation Gait: Steady ED Course And Treatment - Laboratory Results Result Diagrams: 10/27/18 14:57 10/27/18 14:57 Lab Results: Total Bilirubin 0.6 mg/dL (0.2-1.3) 10/27/18 14:57 AST 20 U/L (17-59) 10/27/18 14:57 ALT 11 U/L (21-72) L D 10/27/18 14:57 Alkaline Phosphatase 81 U/L (38-126) 10/27/18 14:57 Total Protein 7.4 g/dL (6.3-8.3) 10/27/18 14:57 Albumin 4.7 g/dL (3.5-5.0) 10/27/18 14:57 Globulin 2.8 gm/dL (2.2-3.9) 10/27/18 14:57 Albumin/Globulin Ratio 1.7 (1.0-2.1) 10/27/18 14:57 Urine Color Pallavi (YELLOW) 10/27/18 14:57 Urine Clarity Hazy (Clear) 10/27/18 14:57 Urine pH 7.0 (5.0-8.0) 10/27/18 14:57 Ur Specific [place] 1.020 (1.003-1.030) 10/27/18 14:57 Urine Protein 1+ mg/dL (NEGATIVE) H 10/27/18 14:57 Urine Glucose (UA) Normal mg/dL (Normal) 10/27/18 14:57 Urine Ketones Negative mg/dL (NEGATIVE) 10/27/18 14:57 Urine Blood Negative (NEGATIVE) 10/27/18 14:57 Urine Nitrate Negative (NEGATIVE) 10/27/18 14:57 Urine Bilirubin Negative (NEGATIVE) 10/27/18 14:57 Urine Urobilinogen 2.0 mg/dL (0.2-1.0) 10/27/18 14:57 Ur Leukocyte Esterase Neg Alejandra/uL (Negative) 10/27/18 14:57 Urine RBC (Auto) 2 /hpf (0-3) 10/27/18 14:57 Amorphous Sediment Few /ul (<OCC) H 10/27/18 14:57 Interpretation Of Abnormal: Positive for Amphetamines and Benzos. O2 Sat by Pulse Oximetry: 99 Pulse Ox Interpretation: Normal Progress Note: Pt was evaluated by Crisis and cleared for discharge. Disposition Counseled Patient/Family Regarding: Studies Performed, Diagnosis, Need For Followup, Smoking Cessation - Disposition Referrals: Isaiah Gonzalez MD [Staff Provider] - Disposition: HOME/ ROUTINE Disposition Time: 17:00 Condition: STABLE Additional Instructions: Avoid any illicit drugs. Follow up with your doctor and with outpatient mental health. Return to the ER if you develop suicidal or homicidal thoughts, worsening of symptoms or if you have any other concerns. Instructions: Acute Psychosis (DC) Forms: [employer] (Albanian) - Clinical Impression Clinical Impression: Substance-induced psychotic disorder
== END 2018-10-27 17:06 | disposition home or self-care (01) ==
LOC: C.ER 13:42
DX: F19.959 Other psychoactive substance use, unspecified with psychoactive substance-induced psychotic disorder, unspecified (principal)